=== PATIENT | female | born 1940 | race Caucasian/White ===

== ENCOUNTER 2020-04-05 07:10 | Inpatient (IN) | payer MEDICARE, OTHER ==
[2020-03-31 14:19] LABS: BASOPHILS # (AUTO) 0.1 (0.0-0.1); BASOPHILS % 0.3 % (0.0-1.0); EOSINOPHILS % 0.1 % (0.0-6.0); HEMOGLOBIN 13.6 g/dL (12.0-16.0); LYMPHOCYTES % 11.3 % (18.0-39.1); MEAN CORPUSCULAR HEMOGLOBIN 29.3 pg (28-32); MEAN CORPUSCULAR HGB CONC 31.6 g/dL (31-35); MEAN CORPUSCULAR VOLUME 92.7 fL (81-99); MONOCYTES # (AUTO) 1.4 (0.2-0.8); NEUTROPHILS # (AUTO) 13.9 (2.1-6.9); NEUTROPHILS % 79.3 % (38.7-80.0); PLATELET COUNT 243 x10e3/uL (140-360); RED BLOOD COUNT 4.64 x10e6/uL (3.6-5.1); RED CELL DISTRIBUTION WIDTH 15.2 % (11.7-14.4)
--- NOTE | 2020-03-31 14:47 | Diagnostic Imaging Report ---
EXAMINATION: CHEST 2 VIEWS INDICATION: Pre-operative COMPARISON: None FINDINGS: LINES/TUBES:None LUNGS:The lungs are well-inflated. No focal consolidation or pulmonary edema. PLEURA:No pleural effusion or pneumothorax. MEDIASTINUM:The cardiomediastinal silhouette appears normal in size and shape. Atherosclerotic calcifications of the thoracic aorta. BONES/SOFT TISSUES:No acute osseous injury. Partially visualized cervical spine fusion hardware. Surgical clips overlying both axillae. ABDOMEN:No free air under the diaphragm. IMPRESSION: No focal pneumonia or pulmonary edema. Signed by: Jj Barney MD on 03/31/2020 2:44 PM
[2020-03-31 14:58] LABS: ANION GAP 15.5 mmol/L (8-16); CALCIUM 9.3 mg/dL (8.4-10.2); CREATININE, SERUM 1.19 mg/dL (0.57-1.11); POTASSIUM 4.5 mmol/L (3.5-5.1)
[~2020-04-05] VITALS: Ht 162.6 cm; Wt 97.5 kg
[~2020-04-05 07:10] MED LIST: ATORVASTATIN CA20 MG PO; FLOMAX0.4 MG PO; FUROSEMIDE40 MG PO; OMEPRAZOLE40 MG PO; OXAZEPAM15 MG PO; RIVASTIGMINE1.5 MG TOP; SERTRALINE HCL50 MG PO; ZYRTEC10 MG PO
[2020-04-05] MEDS ORDERED: CLINDAMYCIN 300MG 50 ML IV ONE (07:47)
[2020-04-05] MEDS ORDERED: LEVOFLOXACIN 500MG/D5W 100ML 100 ML IV ONE (07:47)
[2020-04-05 08:02] LABS: BASOPHILS # (AUTO) 0.1 (0.0-0.1); BASOPHILS % 0.4 % (0.0-1.0); EOSINOPHILS # (AUTO) 0.2 (0.0-0.4); EOSINOPHILS % 1.3 % (0.0-6.0); HEMATOCRIT 40.2 % (34.2-44.1); HEMOGLOBIN 12.7 g/dL (12.0-16.0); LYMPHOCYTES # (AUTO) 1.9 (1.0-3.2); LYMPHOCYTES % 13.5 % (18.0-39.1); MEAN CORPUSCULAR HEMOGLOBIN 29.4 pg (28-32); MEAN CORPUSCULAR HGB CONC 31.6 g/dL (31-35); MEAN CORPUSCULAR VOLUME 93.1 fL (81-99); MONOCYTES % 6.9 % (4.4-11.3); PLATELET COUNT 219 x10e3/uL (140-360); RED BLOOD COUNT 4.32 x10e6/uL (3.6-5.1); RED CELL DISTRIBUTION WIDTH 15.1 % (11.7-14.4)
[2020-04-05 08:19] LABS: ANION GAP 13.7 mmol/L (8-16); CALCIUM 9.1 mg/dL (8.4-10.2); CREATININE, SERUM 1.19 mg/dL (0.57-1.11); POTASSIUM 4.7 mmol/L (3.5-5.1)
[2020-04-05] MEDS ORDERED: IOPAMIDOL 300MG/ML 50ML INFUS..BTL IV ONE (11:25)
[2020-04-05] MEDS ORDERED: BUPIVACAINE 0.25% 30ML SDV INJ ONE (11:25)
[2020-04-05] MEDS ORDERED: BACITRACIN 50,000 UNIT VIAL ONE (11:25)
[2020-04-05] MEDS ORDERED: INDIGOTINDISULFONATE SODIUM 8 MG/ML AMP IJ ONE ×2 (11:25→11:36)
[2020-04-05] MEDS ORDERED: SILVER SULFADIAZINE 50GM CREAM ONE (11:30)
[2020-04-05] MEDS ORDERED: LIDOCAINE 1% W/EPINEPHRINE 20 ML VIAL ONE (11:35)
[2020-04-05] MEDS ORDERED: DIPHENHYDRAMINE HCL 25 MG CAP PO PRN (13:30)
[2020-04-05] MEDS ORDERED: ONDANSETRON HCL INJ 2MG/ML 2ML 2 MG/ML VIAL IV PRN (13:30)
[2020-04-05] MEDS ORDERED: D5.45%NS/KCL 20MEQ 1,000 ML IV SCH (13:30)
[2020-04-05] MEDS ORDERED: MORPHINE SULFATE 2 MG/ML SYR 1ML IV PRN (13:30)
[2020-04-05] MEDS ORDERED: ACETAMINOPHEN/CODEINE 300MG - 30MG TAB PO PRN (13:30)
[2020-04-05] MEDS ORDERED: METOCLOPRAMIDE HCL 10 MG/2ML VIAL ONE (14:50)
--- NOTE | 2020-04-05 14:50 | Diagnostic Imaging Report ---
OR Fluoroscopy: IMPRESSION: Fluoroscopy service provided in the OR. Interpretation not requested. Signed by: Jeancarlos Velazquez MD on 04/05/2020 2:47 PM
[2020-04-05] MEDS ORDERED: MORPHINE SULFATE INJ 4 MG/ML INJ 1ML ONE (15:14)
[2020-04-05] MEDS ORDERED: DOCUSATE SODIUM 100 MG CAP PO SCH (17:00)
[2020-04-05] MEDS ORDERED: CEFOXITIN 1GM/ D5W 50ML 50 ML IV ONE (17:18)
[2020-04-05] MEDS ORDERED: ACETAMINOPHEN 1000 MG/100 ML IV PRN (18:00)
[2020-04-05] MEDS: CEFOXITIN 1GM/ D5W 50ML 50 ML IV SCH (18:20)
[2020-04-05] MEDS ORDERED: ONDANSETRON HCL INJ 2MG/ML 2ML 2 MG/ML VIAL ONE (18:37)
[2020-04-05] MEDS ORDERED: SEVOFLURANE INHAL SOLN 250 ML PEN BTL ONE (18:37)
[2020-04-05] MEDS ORDERED: DEXAMETHASONE SOD PHOS INJ 4 MG/ML VIAL ONE (18:37)
[2020-04-05] MEDS ORDERED: ETOMIDATE 2 MG/ML 10 ML INJ IV ONE (18:37)
[2020-04-05] MEDS ORDERED: MIDAZOLAM HCL 2 MG/2 ML VIAL ONE (18:41)
[2020-04-05] MEDS ORDERED: FENTANYL CITRATE/PF 100MCG/2 ML INJ ONE (18:41)
[2020-04-05] MEDS: CLINDAMYCIN 300MG 50 ML IV SCH (19:32)
[2020-04-05 20:10] VITALS: BP 108/63
[2020-04-05 21:04] VITALS: BP 108/63
[2020-04-05] MEDS: OXAZEPAM 15 MG CAP PO SCH (22:29)
[2020-04-06] VITALS (8 sets, daily range): BP systolic 102–121; BP diastolic 59–68
--- NOTE | 2020-04-06 01:46 | Operative Report ---
DATE OF PROCEDURE: 04/05/2020 SURGEON: Anmol Williamson MD PREOPERATIVE DIAGNOSES: 1. Cystocele. 2. Impending stress incontinence. 3. Urinary tract infections. POSTOPERATIVE DIAGNOSES: 1. Cystocele. 2. Impending stress incontinence. 3. Urinary tract infections. OPERATION PERFORMED: 1. Repair of cystocele. 2. Utilization of graft and cystocele repair. 3. Pubovaginal sling utilizing homograft (separate performed for the incontinence). 4. Cystourethroscopy with bilateral ureteral catheterization and retrograde ureteropyelography (separate procedure performed for the urine tract infections). 5. Interpretation of retrograde ureteropyelography, no radiologist present. 6. Supervision of fluoroscopy, no radiologist present. ANESTHESIA: General. COMPLICATIONS: None. CLINICAL SUMMARY: Luis Manuel Gtz is an 79-year-old woman with a cystocele and incontinence. She also has incomplete bladder emptying, which we believe may be resulting from the cystocele itself indicating deposits in the urethra. The patient is brought for the above procedures. She is aware of the risks of bleeding, infection, injury to adjacent structures, persistent incontinence, newer incontinence, different incontinence and the usual attendant risks of surgery and anesthesia, which she was encouraged to discuss with anesthesiologist preoperatively. She understood all these risks and elected to proceed. This is not an elective procedure as this is an anatomical problem. The patient does not empty her bladder fully and requires correction despite of the COVID-19 situation. OPERATIVE PROCEDURE IN DETAIL: Informed consent was verified. Luis Manuel Gtz was properly identified, taken to the operating room, placed on the operating table in supine position. Anesthesia was uneventfully begun. The patient was then carefully and gently repositioned in the dorsal lithotomy position with all pressure points well padded. Her abdomen, genitalia, and perineum were shaved, prepared, and draped in usual sterile fashion. Labial stay sutures were placed. The vaginal speculum was utilized. Lidocaine with epinephrine was utilized to infiltrate submucosally along the anterior vaginal wall. A midline incision was then made. Bilateral vaginal wall flaps were created. We pierced the endopelvic fascia as laterally as possible bilaterally, thus avoiding injury to the neurovascular periurethral complexes. Once the dissection was completed, we utilized the heavy Vicryl suture in interrupted [id number] fashion to approximate the cut edges of the endopelvic fascia and thus doing a plicating type of cystocele repair. This was done from the bladder neck to the cephalad most extent of the vaginal incision. The Bernardo catheter was then placed. The graft was cut to shape. A heavy PDS suture was then placed through the ends of the graft in a helical fashion. We then utilized the Odeeo needle system. With finger guidance we hugged the posterior surface of the pubis on the left hand side and pierced through the anterior abdominal wall, then dragged with the PDS suture pair. An identical procedure was performed on the right-hand side. We then utilized chromic suture to secure the graft to support the cystocele repair. We then brought the graft distally in order to create a pubovaginal sling and this was secured to the distal urethra utilizing chromic suture. The lateral suture passer was then utilized to take one strand of each PDS suture and tunneled it subcutaneously suprapubically to join its contralateral counterpart. The sutures were then tied down to the level of the patient's skin and then the knots were allowed to fall deep within the suprapubic fat pad thus ensuring a non-lifting, non-constricting, and nonobstructing sling. Copious irrigation was performed of all incisions. Lidocaine with epinephrine was utilized to infiltrate the stab wounds in the suprapubic area. These wounds were approximated with 4-0 Monocryl suture in subcuticular fashion. The vaginal incision was then approximated with heavy Vicryl suture in running fashion. A Bernardo catheter was withdrawn. Cystoscopy was performed. Panendoscopy of the bladder revealed no suspicious mucosal lesions. There were no tumors and there were no stones. Grade 1-2 trabeculations were noted. A ureteral catheter was used to cannulate each ureter and retrograde pyelograms were performed. Interpretation of retrograde ureteropyelography contrast was instilled in retrograde fashion bilaterally. There was a rather dramatic amount of back hardware noted from prior back surgery. There was some tortuosity of the proximal right ureter. There was J-hooking noted bilaterally following the cystocele repair. Both sides exhibited calices that were sharp and delicate. There was no hydronephrosis. An unobstructed drainage was observed bilaterally fluoroscopically. The cystoscope was withdrawn. Bernardo catheter was placed. Vaginal packing was placed. Labial stay sutures were removed. Sterile dressings were applied to the suprapubic area. The patient was uneventfully reversed from anesthesia and taken to recovery room in stable condition. There were no complications to the procedure. She tolerated the procedure well. Explicit postop instructions were given and we will proceed with routine postoperative care and ongoing urological followup. Anmol Williamson MD [place]/MODL /[id number] cc: Pauline Villaseñor MD
[2020-04-06] MEDS: CEFOXITIN 1GM/ D5W 50ML 50 ML IV SCH ×3 (01:51→16:57)
[2020-04-06] MEDS: CLINDAMYCIN 300MG 50 ML IV SCH ×3 (04:00→20:01)
[2020-04-06 06:18] LABS: BASOPHILS % 0.2 % (0.0-1.0); EOSINOPHILS % 0.1 % (0.0-6.0); HEMATOCRIT 36.8 % (34.2-44.1); HEMOGLOBIN 11.5 g/dL (12.0-16.0); LYMPHOCYTES # (AUTO) 1.5 (1.0-3.2); LYMPHOCYTES % 8.4 % (18.0-39.1); MEAN CORPUSCULAR HEMOGLOBIN 29.3 pg (28-32); MEAN CORPUSCULAR HGB CONC 31.3 g/dL (31-35); MEAN CORPUSCULAR VOLUME 93.6 fL (81-99); MONOCYTES # (AUTO) 1.2 (0.2-0.8); MONOCYTES % 6.7 % (4.4-11.3); NEUTROPHILS % 83.9 % (38.7-80.0); PLATELET COUNT 172 x10e3/uL (140-360); RED BLOOD COUNT 3.93 x10e6/uL (3.6-5.1); RED CELL DISTRIBUTION WIDTH 14.9 % (11.7-14.4)
--- NOTE | 2020-04-06 06:41 | NUR ---
H&P cc: cystocele HPI: 79yoF, PCP , admitted for elective cystocele repair; had procedure, now recovering. Pt has hx urinary incontinence. PMH: cystocele, HLD, GERD, IRAJ, urinary incontinence, dementia, breast cancer s/p chemoXRT and B/L mastectommies in , Recurrent UTIs, PSHx: appendectomy, tonsillectomy, neck/back, mastectomies, cholecystectomy Allergies; see emr Fh/SH; ; no cigs meds; see MAR ros: no f/c/s/N/V/D/WALLIS/cp/sob/skin rash/back pain/dizziness/confusion v/s; revd PE tired appearing anicteric ns1s2 mod bs soft nt nd Bernardo in place, clear urine no edema/tenderness legs skin dry n. affect a&ox3; arias labs/meds A/P; Cystocele- s/p repair Obesity- hba1c/lipids Leukocytosis- iv abx; BMI 36.9 IRAJ- BZD GERD- ppi HLD- cont statin MIGDALIA vs CKD- IVF Prop: scd; pepcid dispo: Lorri Moralez MD, PhD.
[2020-04-06 06:43] LABS: ANION GAP 11.9 mmol/L (8-16); CREATININE, SERUM 0.97 mg/dL (0.57-1.11); POTASSIUM 4.9 mmol/L (3.5-5.1)
[2020-04-06] MEDS ORDERED: ACETAMINOPHEN 325 MG TAB PO PRN (06:45)
[2020-04-06] MEDS ORDERED: DOCUSATE SODIUM 100 MG CAP PO PRN (06:45)
[2020-04-06] MEDS ORDERED: ONDANSETRON HCL INJ 2MG/ML 2ML 2 MG/ML VIAL IV PRN (06:45)
[2020-04-06 07:17] LABS: CHOL/HDL RATIO 3.7 (3.0-3.6)
[2020-04-06] MEDS: PANTOPRAZOLE SOD 40 MG TABEC PO SCH (08:35)
[2020-04-06] MEDS: DEXTROSE 5%/0.45% SOD CHL 1,000 ML IV SCH ×2 (08:37→16:53)
[2020-04-06] MEDS: SERTRALINE HCL 50 MG TAB PO SCH (08:43)
--- OUTSIDE RECORDS SUMMARY | 2020-04-06 08:50 | XMS REPORT | Clinical Summary ---
Author Author [facility] Address Unknown Phone Unavailable Care Team Providers Care General Manager Farm Name Role Phone Pauline Villaseñor MD PCP Allergies Comments Active Allergy Reactions Severity Noted Date Amoxicillin Rash Low 04/06/2018 Medications End Date Status Medication Sig Dispensed Refills Start Date Active atorvastatin (LIPITOR) 20 0 03/02/201 MG tablet 8 Active aspirin (ECOTRIN) 81 MG Take 1 tablet 0 enteric coated tablet every day by oral route. Active omeprazole (PriLOSEC) 40 omeprazole 40 0 MG capsule mg cpdr Active rivastigmine (EXELON) 9.5 0 //201 mg/24 hr 8 Active multivit-minerals/ferrous Take by 0 fum (MULTI VITAMIN ORAL) mouth. Status Hospital, Clinic, or Ordered Dose Route Frequency Start End Date Other Facility Date Administered Medication Active methylPREDNISolone 40 mg IAtc once 0 acetate (DEPO-MEDROL) 18 injection 40 mgIndications: Osteoarthritis of right knee, unspecified osteoarthritis type Active bupivacaine (MARCAINE) 5 mg inj once 0.5 % (5 mg/mL) injection 18 5 mgIndications: Osteoarthritis of right knee, unspecified osteoarthritis type Active Problems Problem Noted Date Cervical post-laminectomy syndrome 09/09/2018 Displacement of lumbar intervertebral disc without my elopathy 09/09/2018 Lumbar post-laminectomy syndrome 09/09/2018 Lumbosacral radiculitis 09/09/2018 Scoliosis of lumbar spine 09/09/2018 Spondylolisthesis 09/09/2018 Complex tear of medial meniscus of right knee 2017 Osteoarthritis 07/06/2018 Chronic pain of right knee 04/06/2018 Lymphedema 04/06/2018 Muscle spasm 06/22/2014 Urinary retention 06/22/2014 Family History Medical History Relation Name Comments Heart disease Father Diabetes Sister Relation Name Status Comments Father Sister Social History Date Tobacco Use Types Packs/Day Years Used Never Smoker Smokeless Tobacco: Never Used Drinks/Week oz/Week Comments Alcohol Use No Sex Assigned at Date Recorded Not on file Industry Job Start Date Occupation Not on file Not on file Not on file Travel End Travel History Travel Start No recent travel history available. Last Filed Vital Signs Not on file Plan of Treatment Health Maintenance Due Date Last Done Comments SHINGLES VACCINES (#1) 1988 65+ PNEUMOCOCCAL VACCINE 2003 (1 of 2 - PCV13) INFLUENZA VACCINE 06/17/2020 Results Not on fileafter 04/05/2019 Insurance Type Payer Benefit Subscriber ID Effective Phone Address Plan / Dates Group HMO CIG[employer] CIGNA xxxxxxxxxxx 2017-P [facility] [facility] AD[facility] [id number] Advance Directives For more information, please contact: [phone] Patient Box Packer Explanation Type Date Recorded Advance Directives, Living Will and Medical Power of Corporate Bond Trader
--- OUTSIDE RECORDS SUMMARY | 2020-04-06 08:50 | XMS REPORT | Summary of Care ---
Author Author [facility] Outpatient Imaging - [facility] Outpatient Imaging - [facility] Address Unknown Phone Unavailable Encounter HQ Mariner_skye(FIN) [id number] Date(s): 10/18/16 - 10/18/16 [facility] Outpatient Imaging - [place] [facility] [address] [address]- [place] [phone] Discharge Disposition: Home or Self Care Attending Physician: Pauline Villaseñor MD Vital Signs No data available for this section Problem List No data available for this section Allergies, Adverse Reactions, Alerts Substance Reaction Severity Status NKDA Active Medications No data available for this section Results No data available for this section Immunizations No data available for this section Procedures No data available for this section Social History No data available for this section Assessment and Plan No data available for this section
--- OUTSIDE RECORDS SUMMARY | 2020-04-06 08:50 | XMS REPORT | Continuity of Care Document ---
Author Author Aline Gomez RIGO [facility] Address Unknown Phone Unavailable Care Team Providers Care Cytopathologist Name Role Phone [facility] Information NeedFeed Unavailable Un available Problems Problem Status Onset Date Classification Date Reported Comments Source D05.90 - UNSPECIFIED TYPE OF CARCINOMA Active 10/18/2016 [facility] M51.27 - OTHER INTERVERTEBRAL DISC DISP Active 09/03/2016 [facility] Medications No Data Provided for This Section Allergies, Adverse Reactions, Alerts No Known Medication Allergies Immunizations No Data Provided for This Section Results No Data Provided for This Section Pathology Reports No Data Provided for This Section Diagnostic Reports Report Value Date Source Breast Complete Parvez US - BREAS T COMPLETE PARVEZ US ULTRASOUND OF BOTH BREASTS- POST MASTECTOMY: 10/21/2016 CLINICAL: Z85.3 Personal History Of Malignant Neoplasm Of Breast. Comparison is made to exams dated: 08/09/2014 ultrasound, 08/09/2014 mammogram, 08/09/2014 ultrasound biopsy, 07/28/2014 breast MRI, 07/27/2014 mammogram and 11/16/2013 ultrasound - [facility]. Real-time ultrasound of both breasts was performed. The entire right and left mastectomy sites were evaluated including all four quadrants, axilla, and axillary tail. There are no abnormal-appearing lymph nodes in both axilla. There is no complex cyst, suspicious mass, or abnormal echotexture. IMPRESSION: BENIGN There is no sonographic evidence of malignancy. Ever Aguilar M.D. mt/:10/21/2016 11:33:56 Mirror Painter: Jael Junior R.D.M.S, [facility] This exam was dictated and interpreted by [id number] for [facility]. letter sent: Normal exam Ultrasound BI-RADS: 2 Benign 10/21/2016 [facility] Bone Density DXA [employer] MA - Bone Density [employer] MA BONE DENSITY EVALUATION: 10/18/2016 CLINICAL DATA: Post menopausal. Taking multivitamins and vitamin D. RISK FACTORS: race. Patient had surgery on her lower lumbar spine. FINDINGS: Bone density evaluation was performed 10/18/2016 on the AP L1-L3 region of spine using a Hologic unit. The BMD average for the exam is 1.229 g/cm2. The T-score is 1.90 and the Z-score is 4.40. These values indicate 166.0% for age-matched controls. This matches the World Health Organization's criteria for normal bone density and places the patient within normal limits of fracture risk. An additional bone density evaluation was performed 10/18/2016 on the right femur neck using a Hologic unit. The BMD average for the exam is 0.800 g/cm2. The T-score is -0.40 and the Z-score is 1.80. These values indicate 133.0% for age-matched controls. This matches the World Health Organization's criteria for normal bone density and places the patient within normal limits of fracture risk. An additional bone density evaluation was performed 10/18/2016 on the right hip using a Hologic unit. The BMD average for the exam is 1.107 g/cm2. The T-score is 1.40 and the Z-score is 3.30. These values indicate 158.0% for age-matched controls. This matches the World Health Organization's criteria for normal bone density and places the patient within normal limits of fracture risk. An additional bone density evaluation was performed 10/18/2016 on the left femur neck using a Hologic unit. The BMD average for the exam is 0.904 g/cm2. The T- score is 0.50 and the Z-score is 2.70. These values indicate 150.0% for age- matched controls. This matches the World Health Organization's criteria for normal bone density and places the patient within normal limits of fracture risk. An additional bone density evaluation was performed 10/18/2016 on the left hip using a Hologic unit. The BMD average for the exam is 1.150 g/cm2. The T-score is 1.70 and the Z-score is 3.70. These values indicate 164.0% for age-matched controls. This matches the World Health Organization's criteria for normal bone density and places the patient within normal limits of fracture risk. IMPRESSION: BONE DENSITY WITHIN NORMAL LIMITS Patient is at normal risk for fracture. Compared to BMD of prior exam, there has been a DECREASE in bone density in the spine and bilateral hips. This exam was dictated and interpreted by [facility], [place] [address]. Thi Lozano M.D. sg/:10/21/2016 17:05:51 Mirror Painter: Aurora Clemons, [facility] [place] [facility] 10/18/2016 [facility] Spine lumbar wo contrast MRI E XAM: MRI lumbar spine HISTORY: Low back pain, lumbar radiculopathy COMPARISON: MRI lumbar spine 11/09/2013 TECHNIQUE: Axial and sagittal T1 and T2-weighted images of the lumbar spine. No contrast. FINDINGS: Levoscoliosis. Rods and pedicle screws and laminectomies L4-5 and L5-S1 and intervertebral graft at L5-S1 appear stable. Stable laminectomy L3. T12-L1: Disc bulge, mild-moderate facet and ligamentum flavum hypertrophy bilaterally with mild-moderate central canal stenosis. Moderate-marked right neuroforaminal stenosis and moderate left neuroforaminal stenosis. The disc abuts the right T12 foraminal nerve root. L1-2: Small disc bulge right lateral recess, mild-moderate facet arthrosis and ligamentum flavum hypertrophy bilaterally with moderate-marked canal stenosis. Marked neuroforaminal stenosis on the left and moderate foraminal stenosis on the right. L2-3: Mild anterolisthesis of L3 with small disc bulge, marked facet arthrosis, left greater than right, with moderate-marked canal stenosis. Marked neuroforaminal stenoses bilaterally with compression of the left L2 foraminal nerve root. L3-4: Grade 1 anterolisthesis of L3 is not significantly changed with associated pseudodisc bulge, marked facet arthrosis and marked central canal stenosis. Marked neuroforaminal stenoses bilaterally with impingement of the right and left L3 foraminal nerve roots. L4-5: No disc bulge. Moderate canal stenosis. Marked neuroforaminal stenosis on the right and moderate-marked foraminal stenosis on the left with disc osteophyte complex impinging the left L4 foraminal nerve root. L5-S1: Significant disc bulge or central canal stenosis. Moderate-marked neuroforaminal stenoses bilaterally with impingement of the right and left L5 foraminal nerve roots. 3.4 cm AP infrarenal aortic aneurysm is stable. 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 Heterogeneous T2 lesion adjacent to the right iliac bone may reflect postoperative collection related to graft donor site. IMPRESSION: 1. Stable postoperative changes of the l umbosacral spine. Scoliosis and anterolisthesis L3. Diffuse degenerative change with disc bulges and posterior element hypertrophy with moderate-marked canal and neuroforaminal stenoses most pronounced at L3-4. Multilevel nerve root impingement. 2. Stable aneurysms of the infrarenal ao rta and common iliac arteries. SL: [id number] 09/11/2016 [facility] Abdomen complete US EXAM: Ultr asound abdomen HISTORY: Abdominal aortic aneurysm, back pain COMPARISON: Ultrasound aorta 10/14/2012 TECHNIQUE: Grayscale and limited color sonographic evaluation of the abdomen was performed with standard technique. FINDINGS: LIVER: Fatty change. BILE DUCTS: Visualized common duct measures 3 mm diameter. GALLBLADDER: Cholelithiasis. PANCREAS: The visualized pancreas appears unremarkable.. SPLEEN: Unremarkable. KIDNEYS: No hydronephrosis.. AORTA AND INFERIOR VENA CAVA: The distal aorta measures 3 cm AP x 3.6 cm transverse. IMPRESSION: 1. Infrarenal aortic aneurysm measuring 3 x 3.6 cm. 2. Cholelithiasis. 3. Fatty liver. SL: [id number] [facility] [place] [facility] Notes No Data Provided for This Section Discharge Summaries No Data Provided for This Section History and Physicals No Data Provided for This Section Vital Signs No Data Provided for This Section Encounters Location Location Details Encounter Type Encounter Number Reason For Visit Attending Provider ADM Date DC Date Status Source [facility] Outpatient Imaging [place] [facility] [id number] 07 Pauline Kasi 09/11/2016 09/12/2016 [facility] - [place] [facility] [id number] 08 Pauline Kasi 10/18/2016 10/19/2016 [facility] [place] [facility] Outpatient Imaging - [place] [facility] [id number] Pauline Kasi 10/21/2016 10/22/2016 [facility] [place] [facility] Procedures No Data Provided for This Section Assessment and Plan No Data Provided for This Section Plan of Care No Data Provided for This Section Social History Social History Date Source No data available for this section 10/22/2016 [facility] [place] [facility] No data available for this section 09/12/2016 [facility] [place] Family History No Data Provided for This Section Advance Directives No Data Provided for This Section Functional Status No Data Provided for This Section
--- OUTSIDE RECORDS SUMMARY | 2020-04-06 08:50 | XMS REPORT | Summary of Care ---
Author Author [facility] Outpatient Imaging [facility] Outpatient Imaging [facility] Address Unknown Phone Unavailable Encounter HQ Encntr_alias(FIN) [id number] Date(s): 09/11/16 - 09/11/16 [facility] Outpatient Imaging [address] [phone] Discharge Disposition: Home or Self Care Attending [...]
--- OUTSIDE RECORDS SUMMARY | 2020-04-06 08:50 | XMS REPORT | Summary of Care ---
Author Author [facility] Outpatient Imaging - [facility] Outpatient Imaging - [facility] Address Unknown Phone Unavailable Encounter HQ Lisantr_skye(FIN) [id number] Date(s): 10/21/16 - 10/21/16 [facility] Outpatient Imaging - [place] [facility] [id number] [place] [address] [phone] Discharge Disposition: Home or Self Care Attending [...]
--- OUTSIDE RECORDS SUMMARY | 2020-04-06 08:51 | XMS REPORT | Encounter Summary ---
Author Organization Unknown Address [address] [place] [address] Phone [phone] Care Team Providers Care Well Drill Operator Name Role Phone Dr. Pauline Villaseñor 3 [phone] Jeni Amhadi MD 82 [phone] Dennys Valdez MD 105 [phone] Roseann Martin 110 [phone] Reason for Visit hospital follow up - TCM (VFP); Left low back pain; flu vaccine; Left ear pain/problem; Left shoulder pain; cough Instructions 1. Cervical spondylosis without myelopat hy neurosurgery referral 2. Solitary sacroiliitis sciatica: exercises physical therapy referral 3. Fall 4. Urinary incontinence urology referral 5. Lymphedema Lasix 40 mg tablet lymphedema consult 6. Actinic keratosis dermatology referral 7. Vitamin D deficiency Vitamin D3 400 unit tablet 8. Influenza vaccination Fluad 2019- 65yr up(PF)45 mcg(15 mcg x3)/0.5 mL intramuscular syringe 9. Immunization Pneumovax 23 25 mcg/0.5 mL injection s olution 10. Body mass index 30+ - obesity body mass index: care instructions learning about healthy weight 11. Abdominal aortic aneurysm without ru pture 12. Chronic kidney disease stage 3 13. Polyneuropathy Discussion Note: None recorded. Plan of Care Patient Instructions Thank you for scheduling your post hospi amy visit. Please let us know if you need help in scheduling follow up tests or specialist visits. Knowing what medicines to keep taking and which to ones to stop after a hospital stay can be confusing. Contact your physicians with your questions about what medications you should be taking. Our [facility] can also help you in this area. Contact them at . [facility] can help you choose the best Home Health agency. We can also help you with social psychologist and community resources. Call us we are here to help. If you experience any new or concerning symptoms, call us immediately at . Evening and Friday clinic hours are now available. If you have problems after hours, you can reach the [facility] doctor supervisor metal furniture fabrication at . Please follow up with your doctor in four weeks. Reminders Provider Appointments Est Patient 09/28/2019 10:00AM Pauline Villaseñor MD Lab None recorded. Referral Urology Referral 08/31/2019 Lymphedema Consult 08/31/2019 Neurosurgery Referral 08/31/2019 Physical Therapy Referral 08/31/2019 Dermatology Referral 08/31/2019 Procedures None recorded. Surgeries None recorded. Imaging None recorded. Medications Name Start Date atorvastatin 20 mg tablet TAKE ONE TABLET BY MOUTH ONE TIME DAILY Colace 100 mg capsule Take 1 capsule every day by oral route as needed. furosemide 40 mg tabs 1 tablet orally once a day Lasix 40 mg tablet Take 1 tablet every day by oral route. Miralax prn omeprazole dr 40 mg cpdr 1 capsule orally once a day oxazepam 15 mg capsule Take 1 capsule 3 times a day by oral route as needed. PreserVision AREDS 1 capsule orally once a day rivastigmine 9.5 mg/24 hour transdermal patch APPLY ONE PATCH EXTERNALLY ONE TIME DAILY sertraline 50 mg tablet Take 1 tablet every day by oral route. 04/14/2019 triamterene/hydrochlorothiazide 37.5-25 mg tabs 1 tablet orally once a day Vitamin D3 400 unit tablet Take 1 tablet twice a day by oral route. Medications Administered None recorded. Vitals Height Weight BMI Blood Pressure 5 ft 3 in 219 lbs 38.8 kg/m2 105/76 mm[Hg] Results Lab Results None recorded. 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 12/06/2016 Gastro-esophageal Reflux Disease with Esophagitis Active 12/06/2016 Constipation Active 12/13/2016 Slow Transit Constipation Active 02/14/2017 Nuclear Cataract Active 02/24/2017 Mixed Hyperlipidemia Active 02/27/2017 Morbid Obesity Active 12/08/2017 Polyneuropathy Active 12/08/2017 Peripheral Venous Insufficiency Active 12/08/2017 Solitary Sacroiliitis Active 12/08/2017 Body Mass Index 40+ - Severely Obese Active 12/08/2017 Generalized Anxiety Disorder Active 05/07/2018 Lymphedema Active 05/07/2018 Bilateral Tinnitus Active 09/04/2018 Chronic Kidney Disease Stage 3 Active 01/18/2019 History of Bilateral Mastectomy Active 01/18/2019 Postmenopausal Bleeding Active 02/26/2019 Moderate Major Depression, Single Episode Active 2018 Vitamin D Deficiency Active 08/31/2019 Procedures Date Name Performed by 08/18/2019 Cardiac Catheterization Information not available 08/08/2015 Colonoscopy Information not avai lable 11/17/2013 Lumpectomy Information not avai lable 11/17/2012 Laminectomy Information not avai lable 11/17/2011 Back Surgery Information not avai lable 11/17/2010 Breast Surgery Information not avai lable 11/17/2010 Mastectomy (Both Breasts) Information no t available 11/17/1942 Appendectomy Information not avai lable 11/17/1942 ENT Surgery (Ear, Nose, Throat) Informat ion not available Tonsillectomy Information not avai lable Hernia Repair Information not avai lable Vaccine List Vaccine Type influenza, injectable, quadrivalent 09/08/2018 pneumococcal conjugate PCV 13 02/24/2017 tetanus toxoid, unspecified formulation 06/21/1999 Social History Tobacco Smoking Status Never Smoker Past Encounters 08/31/2019 Cervical Spondylosis without Myelopathy; Solitary Sacroiliitis; Fall; Urinary Incontinence; Lymphedema; Actinic Keratosis; Vitamin D Deficiency; Influenza Vaccination; Immunization; Body Mass Index 30+ - Obesity; Abdominal Aortic Aneurysm without Rupture; Chronic Kidney Disease Stage 3; Polyneuropathy Pauline Villaseñor MD: [address] [place] [phone], Ph. History of Present Illness Shoulder pain Reported By: Patient HPI: Location: left. Quality: occ asional. Severity: mild. Duration: 2 weeks. Timing: acute. Context: cannot identify. Alleviating Factors: position change. Aggravating Factors: ROM. Associated Symptoms: no weakness, no numbness, no tingling, no swelling. Previous Surgery: none. Prior Imaging: x ray. Previous Injections: none. Previous PT: none Fall Reported By: Patient HPI: Location of Injury: face, kn ee bilateral. Severity of Pain: mild. Onset/Timin days ago. Context: fell from standing position, tripped; over parking stop. Associated Symptoms: no loss of consciousness, no facial numbness/weakness, no loss of coordination since injury, poor balance. Alleviating Factors: relieved by ice Notes: skinned her nose and her kne es TCM Provider Visit Reported By: Patient HPI: Timing: ; 08/18-08/20 for left shoulder pain , had heart cath and left side neg, stress t4st and echo were normal. Discharge Information: Discharged from: [facility], Discharged to: Home, Hospital Records (H&P, DC Summary, Transition of Care Document) reviewed and scanned? No - records requested, Current Caregivers:self and others. Functional Status No difficulty following discharge instructions, Taking medications as prescribed, Following recommended activity level, Does patient need help getting medications filled? no, Is the patient dependent upon others to leave the home? yes, Durable medical equipment required? no Acute Low Back Pain Reported By: Patient HPI: Location: pain is not radiat ing. Quality: sharp. Severity: same. Onset/Timin-12 months ago. Context: atraumatic. Alleviating Factors: rest, relieved by lying down. Associated Symptoms: no fever. Previous History: no prior injury to back. Prior Imaging: X-ray URI Reported By: Patient Upper Respiratory Symptoms: Onset/Timing: gradual. Loc ation: ; ear. Quality: dry cough. Severity: no pain. Context: no sick contacts Notes: her son thinks the ear pain , cough and left shoulder pain may be coming from her neck plate Review of Systems:ROS as noted in the HPI Review of Systems Comprehensive General Adult ROS Reported By: Patient Physical Exam General Adult Exam (male), L ow Back Pain Reported By: Patient Constitutional: General Appearance: healthy- appearing, well-developed, overweight. Level of Distress: NAD. Ambulation: limited ambulation Psychiatric: Mental Status: normal mood, normal affect. Orientation: to place, to person. Memory: recent memory abnormal Head: Head: normocephalic, atrauma tic ENMT: Ears: EACs clear, TMs clear. Nose: no sinus tenderness Neck: Neck: ; decreased ROM, not t jayden. Lymph Nodes: no cervical LAD. Thyroid: no enlargement Lungs: Auscultation: breath sounds normal, good air movement, no wheezing, no rales/crackles, no rhonchi Cardiovascular: Heart Auscultation: RRR, no murmurs Abdomen: Inspection and Palpation: so ft, non-distended, no tenderness, no guarding, no rebound tenderness, no masses, no CVA tenderness Musculoskeletal:: Motor Strength and Tone: nor mal. Joints, Bones, and Muscles: normal movement of all extremities. Extremities: no edema Neurologic: Gait and Station: normal gai t, normal station. Cranial Nerves: grossly intact Skin: Inspection and palpation: ; right congregational crusted irregular lesion Lumbar Spine: Inspection: normal alignment . Bony Palpation of the Lumbar Spine: no tenderness of the spinous process. Soft Tissue Palpation on the Right: no tenderness of the supraspinous ligament, no tenderness of the paraspinal region. Soft Tissue Palpation on the Left: tenderness of the iliolumbar region. Active Range of Motion: flexion normal, extension normal. Passive Range of Motion: flexion normal, extension normal
--- OUTSIDE RECORDS SUMMARY | 2020-04-06 08:51 | XMS REPORT | Encounter Summary ---
Author Organization Unknown Address [address] [place] [address] Phone [phone] Care Team Providers Care Regulatory Auditor Name Role Phone Dr. Pauline Villaseñor 3 [phone] Jeni Ahmadi MD 82 [phone] Dennys Valdez MD 105 [phone] Roseann Martin 110 [phone] Reason for Visit Left ear pain/problem; annual depression screening; TELE-AWV Annual Wellness Visit Female; advance care plan; annual alcohol misuse screening; Bilateral eye problem/disorder; Tobacco Cessation Counseling Instructions 1. Acute conjunctivitis mwaodnmb-iazsrstiq-gqqglvib 3.5 mg/mL- 10,000 unit/mL-0.1% eye drops 2. Advance directive discussed with ann ent advance care planning: care instructio ns 3. Depression screening learning about depression 4. Depression screening positive learning about depression learning about mood disorders 5. Alcohol consumption screening learning about alcohol use disorder 6. Generalized anxiety disorder oxazepam 15 mg capsule 7. Mixed hyperlipidemia atorvastatin 20 mg tablet 8. Abdominal aortic aneurysm without rup ture 9. Chronic kidney disease stage 3 10. Moderate major depression, single ep isode sertraline 50 mg tablet 11. Polyneuropathy 12. Lymphedema 13. Cystocele Discussion Note: None recorded. Plan of Care Patient Instructions It was good to speak with you virtually today for your Medicare Annual Wellness Visit. You have been provided some information on healthy nutrition, including a diet rich in fruits and vegetables, minimizing simple carbohydrates, salt, and saturated fats. I want to encourage regular cardiovascular exercise such as walking at least 30 minutes daily, 5 times per week. Please remember to schedule any preventive health measures that we talked about today. You have also been provided education on fall prevention and community- based lifestyle interventions to help reduce health risks and promote healthy living in your Annual Wellness folder. Screening Recommendations 1. Vaccines Pneumonia: Influenza: 2. Mammography Screenin. Colorectal Cancer Screenin. Annual Depression Screening 5. Annual Alcohol Screening 6. Annual Fall Risk Screening 7. Annual Health Risk Assessment Quitting Tobacco Goals Quitting smoking is important for your health, but it is hard to do. We agreed to the following goals towards reducing your tobacco habits: Today we talked about how you are . Since you want to smoke less, but are not ready to quit yet, we agreed that by your next appointment, you would . Since your ready to quit smoking, we agreed that you would smoke your last cigarette on . Keymodule Assembly Machine Tender Goals: *Permanently quit smoking *Improve lung function *Reduce my risk of getting emphysema, cancer and heart disease What can increase my chances of success for quitting smoking? *Regular exercise *Chew gum or hard candy *Identify triggers that lead to smoking, and establish new strategies for coping with these situations *Keep yourself busy *Contact additional resources for support, such as [employer] *Don't give up, even if you have a setback How can my healthcare team support me in quitting smoking? *Follow up visits to assess progress *Identify resources available to help you quit smoking *Consider medication to increase your chances of successfully quitting smoking *Referral to counseling for additional support Patient Instructions on Filing Advance Directives Be sure that you have easy access to your paperwork for your Medical Power of Forensic Pathologist and Advanced Directives. Be sure that the designated person as well as important family members have copies of those forms as well. Please have contact information of your designee readily available. In the event of hospitalization, please bring those important documents with you for reference. Please find additional information at [email or web address] Reminders Provider Appointments None recorded. Lab None recorded. Referral None recorded. Procedures None recorded. Surgeries None recorded. Imaging None recorded. Medications Name Start Date atorvastatin 20 mg tablet TAKE ONE TABLET BY MOUTH ONE TIME DAILY Colace 100 mg capsule Take 1 capsule every day by oral route as needed. furosemide 40 mg tablet Take 1 tablet every day by oral route. Miralax prn wlkmbedk-rrhwfqwep-upngyzno 3.5 mg/mL-10 ,000 unit/mL-0.1% eye drops INSTILL 1 DROP INTO AFFECTED EYE(S) BY OPHTHALMIC ROUTE 4 x a day omeprazole dr 40 mg cpdr 1 capsule orally once a day oxazepam 15 mg capsule take one capsule by mouth three times daily prn PreserVision AREDS 1 capsule orally once a day rivastigmine 9.5 mg/24 hour transdermal patch APPLY ONE PATCH EXTERNALLY ONE TIME DAILY sertraline 50 mg tablet Take 1 tablet every day by oral route. tamsulosin 0.4 mg capsule Take 1 capsule every day by oral route for 90 days. Vitamin D3 10 mcg (400 unit) tablet Take 1 tablet twice a day by oral route. Medications Administered None recorded. Vitals Height 5 ft 3 in Results Lab Results None recorded. Allergies Code [...] Active 2018 Vitamin D Deficiency Active 08/31/2019 Urinary Incontinence Active 03/01/2020 Procedures Date Name Performed by 08/18/2019 Cardiac [...] List Vaccine Type influenza, injectable, quadrivalent 09/08/2018 influenza, trivalent, adjuvanted 08/31/20190.5 mL pneumococcal conjugate PCV 13 02/24/2017 pneumococcal polysaccharide PPV23 08/31/20190.5 mL tetanus toxoid, unspecified formulation 06/21/1999 Social History Tobacco Smoking Status Never Smoker Past Encounters 03/14/2020 Acute Conjunctivitis; Advance Directive Discussed with Patient; Depression Screening; Depression Screening Positive; Alcohol Consumption Screening; Generalized Anxiety Disorder; Mixed Hyperlipidemia; Abdominal Aortic Aneurysm without Rupture; Chronic Kidney Disease Stage 3; Moderate Major Depression, Single Episode; Polyneuropathy; Lymphedema; Cystocele Pauline Villaseñor MD: [address] [place] [phone], Ph. History of Present Illness Mini Cog Reported By: Patient Functional Ability: Personal/Social/ Draw a cloc k and write in the numbers in the correct place, and set the time to 10 minutes after 11 o'clock was completed correctly? Yes, 3 word recall: Your nurse or doctor will ask you to remember 3 words. In 5 minutes, they will ask you to repeat them. Patient recalled 2 words Opioid Use Assessment Reported By: Patient Opioid Use Assessment:: Current Use of Opioids : no use of opioids (no further questions required) Note:I'd like to talk about what is ahead with your illness and do some thinking in advance about what is important to you so I can make sure we provide you with the care you want-is that okay? {{Yes*|No}}
Do you have a Living Will/Advanced Directive? {{yes*|no}}

Do you have a Medical Power of Forensic Pathologist? {{yes*|no}}

How much does your family/caregiver know about your illness/conditions? {{not at all|to a small extent|to some extent|to a moderate extent|to a great extent*}}

Have you had a conversation with your family/caregiver about planning for your future health? {{yes*|no}}
Review of Systems Comprehensive General Adult ROS Reported By: Patient Constitutional: Constitutional: no fever Eyes: Eyes: no vision change, irri tation; bumps and crusting since this am ENMT: Ears: ear pain; left ear temitope n since at least Oct,family has noticed that she does clinch her teeth often. Nose: no sinus problems. Mouth/Throat: sore throat Cardiovascular: Cardiovascular: no chest temitope n, no shortness of breath when walking, no palpitations Respiratory: Respiratory: no cough, no wh eezing, no shortness of breath Gastrointestinal: Gastrointestinal: no abdomin al pain, no nausea, no vomiting, no constipation, no diarrhea, no GERD Genitourinary: Genitourinary: no increased frequency Musculoskeletal: Musculoskeletal: no muscle a ches, muscle weakness, arthralgias/joint pain, back pain, swelling in the extremities Integumentary: Skin: no abnormal mole, no r ashes Neurologic: Neurologic: no numbness, no dizziness, no headaches Psychiatric: Psych: no sleep disturbances , depression Endocrine: Endocrine: no fatigue Hematologic/Lymphatic: Hematologic/Lymphatic easy b ruising Allergic/Immunologic: Allergy/Immunologic: no sinu s pressure, runny nose Physical Exam General Adult Exam (Female) Reported By: Patient Constitutional: General Appearance: healthy- appearing, well-developed, overweight. Level of Distress: NAD Psychiatric: Insight: poor insight. Menta l Status: active and alert. Orientation: to place, to person. Memory: remote memory normal, recent memory abnormal Head: Head: normocephalic, atrauma tic Eyes: Lids and Conjunctivae: no di scharge, no pallor, injected; stye on lower lid. EOM: EOMI. Sclerae: non-icteric ENMT: Ears: no lesions on external ear; tender over left ( not right ) TMJ per pt. Hearing: no hearing loss. Nose: no lesions on external nose Lungs: Respiratory effort: no dyspn ea Musculoskeletal:: Extremities: edema; B LE Neurologic: Cranial Nerves: grossly inta ct. Coordination and Cerebellum: no tremor Skin: Inspection and palpation: no rash, no lesions, no jaundice"
--- OUTSIDE RECORDS SUMMARY | 2020-04-06 08:51 | XMS REPORT | Encounter Summary ---
Author Organization Unknown Address [address] [place] [address] Phone [phone] Care Team Providers Care Lamp Decorator Name Role Phone Dr. Pauline Villaseñor 3 [phone] Jeni Ahmadi MD 82 [phone] Dennys Valdez MD 105 [phone] Roseann Martin 110 [phone] Reason for Visit Bilateral ear pain/problem; cough / ophelia estion Instructions 1. Persistent cough XR, chest, 2 view 2. Body mass index 30+ - obesity body mass index: care instructions learning about healthy weight Discussion Note: None recorded. Plan of Care Reminders Provider Appointments None recorded. Lab None recorded. Referral None recorded. Procedures None recorded. Surgeries None recorded. Imaging XR, Chest, 2 View 10/20/2019 [facility] [place] Medications Name Start Date atorvastatin 20 mg tablet TAKE ONE TABLET BY MOUTH ONE TIME DAILY ciprofloxacin 500 mg tablet Colace 100 mg capsule Take 1 capsule [...] tablet every day by oral route. 04/14/2019 triamterene 37.5 mg-hydrochlorothiazide 25 mg tablet triamterene/hydrochlorothiazide 37.5-25 mg tabs 1 tablet orally once a day Vitamin D3 10 mcg (400 unit) tablet Take 1 tablet twice a day by oral route. Medications Administered None recorded. Vitals Height Weight BMI Blood Pressure 5 ft 3 in 217 lbs 38.4 kg/m2 131/81 mm[Hg] Results Lab Results None recorded. Allergies [...] lable Hernia Repair Information not avai lable 10/20/2019 XR, Chest, 2 View [facility] ice [facility] [place] [address] [place] [address] (Work Place) Vaccine List Vaccine Type influenza, injectable, quadrivalent 09/08/2018 influenza, trivalent, adjuvanted 08/31/20190.5 mL pneumococcal conjugate PCV 13 02/24/2017 pneumococcal polysaccharide PPV23 08/31/20190.5 mL tetanus toxoid, unspecified formulation 06/21/1999 Social History Tobacco Smoking Status Never Smoker Past Encounters 10/20/2019 Persistent Cough; Body Mass Index 30+ - Obesity Eric Mata MD: [address] [facility] [address], [place] [phone], Ph. History of Present Illness Note:Pt here with cough, chest congestion<div>she has been on antibiotics for UTI and yeast infection. she is on antibiotic cefdinir s and antifungals. </div> <div>she has pain in the ear also. </div> Review of Systems:ROS as noted in the HPI Review of Systems None recorded. Physical Exam General Adult Exam (Female) Reported By: Patient Financial Developer: Financial Developer: present Constitutional: General Appearance: healthy- appearing Psychiatric: Insight: good judgement. Men amy Status: active and alert. Orientation: to time Head: Head: normocephalic Eyes: Lids and Conjunctivae: non-i njected. Pupils: PERRLA. EOM: EOMI ENMT: Ears: no lesions on external ear. Oropharynx: moist mucous membranes Neck: Neck: supple. Lymph Nodes: n o cervical LAD. Thyroid: no enlargement Lungs: Respiratory effort: no dyspn ea. Auscultation: breath sounds normal Cardiovascular: Heart Auscultation: RRR. Pul ses including femoral / pedal: normal throughout Back: Thoracolumbar Appearance: no rmal curvature
--- OUTSIDE RECORDS SUMMARY | 2020-04-06 08:51 | XMS REPORT | Encounter Summary ---
Author Organization Unknown Address [address] [place] [id number] Phone [phone] Care Team Providers Care Vice President Integrated Name Role Phone Dr. Pauline Villaseñor 3 [phone] Jeni Ahmadi MD 82 [phone] Dennys Valdez MD 105 [phone] Roseann Martin 110 [phone] Reason for Visit hospital follow up - TCM (VFP); Left low back pain; flu vaccine; Left ear pain/problem; Left shoulder pain; cough Instructions 1. Cervical spondylosis without myelopat hy neurosurgery referral 2. Solitary sacroiliitis sciatica: exercises physical therapy referral - [facility] , and balance training 3. Fall 4. Urinary incontinence urology referral [...] what medications you should be taking. Our [facility] can also help you in this area. Contact them at . [facility] can help you choose the best Home Health agency. We can also help you with clinical social worker and community resources. Call us we are here to help. If you experience any new or concerning symptoms, call us immediately at . Evening and Friday clinic hours are now available. If you have problems after hours, you can reach the [facility] doctor chiropractor sole practitioner at [phone] . Please follow up with your doctor in four weeks. Reminders Provider Appointments Est Patient 09/28/2019 10:00AM Pauline Villaseñor MD Lab None recorded. Referral Urology Referral 08/31/2019 Lymphedema Consult 08/31/2019 [facility] Neurosurgery Referral 08/31/2019 Physical Therapy Referral 08/31/2019 [facility] Dermatology Referral 08/31/2019 Procedures None recorded. Surgeries [...] Disease Stage 3; Polyneuropathy Pauline Villaseñor MD: [address] [place] [phone], Ph. History of Present Illness Shoulder pain [...] echo were normal. Discharge Information: Discharged from: [facility], Discharged to: Home, Hospital Records [...] Muscles: normal movement of all extremities. Extremities: edema; B nonpitting edema , B knees with abrasions Neurologic: Gait and Station: normal gai t, normal station. Cranial Nerves: grossly intact Skin: Inspection and palpation: ; right bahai crusted irregular lesion Lumbar Spine: Inspection: normal [...]
--- OUTSIDE RECORDS SUMMARY | 2020-04-06 08:51 | XMS REPORT ---
Author Author [facility] Address 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 Name Role Phone Saima Villaseñor MD PCP HAMPEL, KODI Attphys Unavailable Josephine Villaseñor Attphys HAMPEL, KODI Admphys Unavailable Payers Payer Name Policy Type Policy Number Effective Date Expiration Date S ource Problems Condition Name Condition Details Condition Category Status Onset Date Resolution Date Last Treatment Date Treating Clinician Comments Source Urinary incontinence Urinary Incontinence Problem Active 00:00:00 [facility] Pract ice Vitamin D deficiency Vitamin D Deficiency Problem Active 00:00:00 [facility] Pract ice Moderate major depression, single episode Moderate Freddy or Depression, Single Episode Problem Active 2019-04-14 00:00:00 [facility] Postmenopausal bleeding Postmenopausal Bleeding Problem Active 2019-02-26 00:00:00 [facility] Chronic kidney disease stage 3 Chronic Kidney Disease Stage 3 Probl em Active 2019-01-18 00:00:00 [facility] History of bilateral mastectomy History of Bilateral Mastectomy Pro blem Active 2019-01-18 00:00:00 [facility] Cervical post-laminectomy syndrome Cervical post-laminectomy syn drome Disease Active 2018-09-09 00:00:00 [place] 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 Disease Active 2018-09-09 00:00:[address] Lumbar post-laminectomy syndrome Lumbar post-laminectomy syndrom e Disease Active 2018-09-09 00:00:00 Bonita Vasquez Lumbosacral radiculitis Lumbosacral radiculitis Disease Active 2018-09-09 00:00:00 Jordon petty Scoliosis of lumbar spine Scoliosis of lumbar spine Disease Ac tive 2018-09-09 00:00:00 Jordon petty Spondylolisthesis Spondylolisthesis Disease Active 2018-09-09 00:00:00 Jordon Vasquez Complex tear of medial meniscus of right knee Complex tear of medial meniscus of right knee Disease Active 2018-09-09 00:00:00 Dillon Vasquez Bilateral tinnitus Bilateral Tinnitus Problem Active 2018-09-04 00:00:0 0 [facility] Osteoarthritis Osteoarthritis Disease Active 2018-07-06 00:00:00 Jordon Vasquez Generalized anxiety disorder Generalized Anxiety Disorder Problem Active 2018-05-07 00:00:00 [facility] Lymphedema Lymphedema Problem Active 2018-05-07 00:00:00 [facility] Chronic pain of right knee Chronic pain of right knee Disease Active 2018-04-06 00:00:00 Jordon petty Lymphedema Lymphedema Disease Active 2018-04-06 00:00:00 Jordon Vasquez Morbid obesity Morbid Obesity Problem Active 2017-12-08 00:00:00 [facility] Polyneuropathy Polyneuropathy Problem Active 2017-12-08 00:00:00 [facility] Peripheral venous insufficiency Peripheral Venous Insufficiency Pro blem Active 2017-12-08 00:00:00 [facility] Solitary sacroiliitis Solitary Sacroiliitis Problem Active 201 06-17-22 00:00:00 [facility] P ractice Body mass index 40+ - severely obese Body Mass Index 40+ - S everely Obese Problem Active 2017-12-08 00:00:00 [facility] Mixed hyperlipidemia Mixed Hyperlipidemia Problem Active 00:00:00 [facility] Pract ice Nuclear cataract Nuclear Cataract Problem Active 2017-02-24 00:00:00 [facility] Allergic rhinitis due to pollen Allergic Rhinitis Due to Pollen Pro blem Active 2016-12-06 00:00:00 [facility] Gastro-esophageal reflux disease with esophagitis Sylwia ro-esophageal Reflux Disease with Esophagitis Problem Active 2016-12-06 00:00:00 [facility] Minimal cognitive impairment Minimal Cognitive Impairment Problem Active 2016-11-14 00:00:00 [facility] D05.90 - UNSPECIFIED TYPE OF CARCINOMA D05.90 - UNSPECIFIED TYPE OF CARCINOMA Active 10/18/2016 [facility] Diagnosis Active 2016-10-18 00:01:00 2016-10-24 19:13:00 [facility] M51.27 - OTHER INTERVERTEBRAL DISC DISP M51.27 - OTHER INTERVERTEBRAL DISC DISP Active 09/03/2016 [facility] Diagnosis Active 2016-09-03 00:01:00 2016-09-11 08:27:00 [facility] Obstructive sleep apnea of adult Obstructive Sleep Apnea of Adul t Problem Active 2016-09-03 00:00:00 [facility] Abdominal aortic aneurysm without rupture Abdominal Ao rtic Aneurysm without Rupture Problem Active 2016-09-03 00:00:00 [place] [facility] Personal history of primary malignant neoplasm of umer st Personal History of Primary Malignant Neoplasm of Breast Problem Active 2016-09-03 00:00:00 [facility] Muscle spasm Muscle spasm Disease Active 2014-06-22 00:00:00 Jordon Vasquez Urinary retention Urinary retention Disease Active 2014-06-22 00:00:00 Jordon Vasquez Pure hypercholesterolemia Pure Hypercholesterolemia Problem Active [facility] Severe obesity Severe Obesity Problem Active [facility] Inflammation of sacroiliac joint Inflammation of Sacroiliac Join t Problem Active [facility] Oropharyngeal dysphagia Oropharyngeal Dysphagia Problem Active [facility] Allergies, Adverse Reactions, Alerts Allergy Name Allergy Type Status Severity Reaction(s) Onset Date Inacti ve Date Treating Clinician Comments Source black pepper FA Active MO 2019-08-18 00:00:00 [facility] Amoxicillin Propensity to adverse reactions to drug Active Rash 2018-04-06 00:00:00 Jordon lewis No Known Allergies DA Active U 2014-05-05 00:00:00 [facility] Amoxicillin Allergy to substance Active Mild to moderate Hives [facility] Family History Family Member Diagnosis Comments Start Date Stop Date Source Natural father Heart disease Jordon Vasquez Natural sister Diabetes Jordon Pr thodist Social History Social Habit Start Date Stop Date Quantity Comments Source Sex Assigned At [facility] Alcohol intake 2018-08-25 00:00:00 2018-08-25 00:00:00 Current non-drinker of alcohol (finding) Jordon Vasquez Social History 2016-09-12 04:59:00 2016-09-12 04:59:00 [facility] Smoking Status Start Date Stop Date Source Never smoker Jordon Bansal t Medications Ordered Medication Name Filled Medication Name Start Date Stop Da te Current Medication? Ordering Clinician Indication Dosage Frequency Signature (SIG) Comments Components Source Miralax 17 gram/dose oral powder Once a day: as direct ed - Miralax 17 gram/dose oral powder Once a day: as directed - 2019-04-06 00:00:00 No Miralax 17 gram/dose oral powder Once a day: as directed - [facility] methylPREDNISolone acetate (DEPO-MEDROL) injection 40 mg 2018-04-06 15:15:00 Yes Osteoarthritis of right knee, unspecified osteoarthritis type 40mg Jordon Vasquez bupivacaine (MARCAINE) 0.5 % (5 mg/mL) injection 5 mg 2018-04-06 15:15:00 Yes Osteoarthritis of right knee, unspecified osteoarthritis type 5m g Jordon Vasquez aspirin (ECOTRIN) 81 MG enteric coated tablet 2018-04-06 14:49:3 8 Yes Take 1 tablet every day by oral route. Jordon Vasquez omeprazole (PriLOSEC) 40 MG capsule 2018-04-06 14:49:38 Yes omeprazole 40 mg cpdr Jordon Vasquez multivit-minerals/ferrous fum (MULTI VITAMIN ORAL) 2018-03 14:49:38 Yes Take by mouth. Bonita Vasquez atorvastatin (LIPITOR) 20 MG tablet 2018-03-02 00:00:00 Yes Jordon Vasquez rivastigmine (EXELON) 9.5 mg/24 hr 2018-02-21 00:00:00 Yes Jordon Vasquez Flonase Allergy Relief 50 mcg/actuation nasal spray,suspension Once a day: 1 spray in each nostril 50 MCG/ACT Flonase Allergy Relief 50 mcg/actuation nasal spray,suspension Once a day: 1 spray in each nostril 50 MCG/ACT 2016-12-13 00:00:00 No Flonastyrel Al lergy Relief 50 mcg/actuation nasal spray,suspension Once a day: 1 spray in each nostril 50 MCG/ACT [facility] Multi-Vitamin tablet : 1 tablet by mouth daily Multi-V itamin tablet : 1 tablet by mouth daily 2012-09-25 00:00:00 No Multi-Vitamin tablet : 1 tablet by mouth daily [facility] Aspir-81 mg tablet,delayed release Once a day: 1 table t 81 MG Aspir-81 mg tablet,delayed release Once a day: 1 tablet 81 MG No Aspir-81 mg tablet,delayed release Once a day: 1 tablet 81 MG [facility] atorvastatin 10 mg tablet Once a day: 1 tablet 10 MG a torvastatin 10 mg tablet Once a day: 1 tablet 10 MG No atorvastatin 10 mg tablet Once a day: 1 tablet 10 MG [facility] ice Colace 100 mg capsule Once a day: 1 capsule as needed 100 MG Colace 100 mg capsule Once a day: 1 capsule as needed 100 MG No Colace 100 mg capsule Once a day: 1 capsule as needed 100 MG [facility] Flomax 0.4 mg capsule Once a day: 1 caps ule 30 minutes after the same meal each day 0.4 MG Flomax 0.4 mg capsule Once a day: 1 caps ule 30 minutes after the same meal each day 0.4 MG No Wilman max 0.4 mg capsule Once a day: 1 capsule 30 minutes after the same meal each day 0.4 MG [facility] furosemide 40 mg tablet Take 1 tablet every day by ora l route. furosemide 40 mg tablet Take 1 tablet every day by oral route. No furosemide 40 mg tablet Take 1 tablet every day by oral route. [facility] oxazepam 15 mg capsule Three times a day: 1 capsule as needed 15 MG oxazepam 15 mg capsule Three times a day: 1 capsule as needed 15 MG No oxazepam 15 mg capsule Three times a day: 1 capsule as needed 15 MG [facility] PreserVision AREDS 1 capsule orally once a day PreserV ision AREDS 1 capsule orally once a day No Preser Vision AREDS 1 capsule orally once a day [facility] sertraline 50 mg tablet Take 1 tablet every day by ora l route. sertraline 50 mg tablet Take 1 tablet every day by oral route. No sertraline 50 mg tablet Take 1 tablet every day by oral route. [facility] Immunizations Ordered Immunization Name Filled Immunization Name Date Status Comments Source influenza, trivalent, adjuvanted influenza, trivalent, adjuv anted 2019-08-31 19:06:00 Completed [facility] ice pneumococcal polysaccharide PPV23 pneumococcal polysaccharid e PPV23 2019-08-31 19:06:00 Completed [facility] ice influenza, seasonal, injectable influenza, seasonal, injecta ble 2018-09-08 00:00:00 Completed [facility] ice influenza, seasonal, injectable influenza, seasonal, injecta ble 2017-07-25 00:00:00 [facility] pneumococcal conjugate PCV 13 pneumococcal conjugate PCV 13 2016 00:00:00 Completed [facility] tetanus toxoid, unspecified formulation tetanus toxoid, unsp ecified formulation 1999-06-21 00:00:00 [facility]pleted [facility] Vital Signs Vital Name Observation Time Observation Value Comments Source BP Diastolic 2020-04-04 00:00:00 75 mm[Hg] [facility] Height 2020-04-04 00:00:00 63 [in_i] [facility] BMI (Body Mass Index) 2020-04-04 00:00:00 38.1 kg/m2 [facility] BP Systolic 2020-04-04 00:00:00 108 mm[Hg] [facility] Body Weight 2020-04-04 00:00:00 215 [lb_av] [facility] Height 2020-03-14 00:00:00 63 [in_i] [facility] BP Diastolic 2019-10-20 00:00:00 81 mm[Hg] [facility] Height 2019-10-20 00:00:00 63 [in_i] [facility] BMI (Body Mass Index) 2019-10-20 00:00:00 38.4 kg/m2 [facility] BP Systolic 2019-10-20 00:00:00 131 mm[Hg] [facility] Body Weight 2019-10-20 00:00:00 217 [lb_av] [facility] BP Diastolic 2019-08-31 00:00:00 76 mm[Hg] [facility] Height 2019-08-31 00:00:00 63 [in_i] [facility] BMI (Body Mass Index) 2019-08-31 00:00:00 38.8 kg/m2 [facility] BP Systolic 2019-08-31 00:00:00 105 mm[Hg] [facility] Body Weight 2019-08-31 00:00:00 219 [lb_av] [facility] Procedures Procedure Date / Time Performed Performing Clinician Sourc e electrocardiogram 2020-04-04 00:00:00 [facility] X-RAY OF CHEST 2 VIEW 2019-10-20 00:00:00 [facility] Cardiac Catheterization 2019-08-18 00:00:00 [facility] Colonoscopy 2015-08-08 00:00:00 [facility] Lumpectomy 2013-11-17 00:00:00 [facility] Laminectomy 2012-11-17 00:00:00 [facility] Practice Back Surgery 2011-11-17 00:00:00 [facility] Breast Surgery 2010-11-17 00:00:00 [facility] Mastectomy (Both Breasts) 2010-11-17 00:00:00 [facility] Appendectomy 1942-11-17 00:00:00 [facility] ENT Surgery (Ear, Nose, Throat) 1942-11-17 00:00:00 [facility] Tonsillectomy [facility] ractice Hernia Repair [facility] P ractice Plan of Care Planned Activity Planned Date Details Comments Source Future Scheduled Test 2020-06-17 00:00:00 INFLUENZA VACCINE [code = INFLUENZA VACCINE] [facility] Future Scheduled Test 2003 00:00:00 65+ PNEUMOCOCCAL V ACCINE (1 of 2 - PCV13) [code = 65+ PNEUMOCOCCAL VACCINE (1 of 2 - PCV13)] [facility] Future Scheduled Test 1988 00:00:00 SHINGLES VACCINES (#1) [code = SHINGLES VACCINES (#1)] [facility] Encounters Start Date/Time End Date/Time Encounter Type Admission Type [facility] Care Department Encounter ID Source 2020-04-04 00:00:00 2020-04-04 00:00:00 Josephine Pugh D: [address], [place] [address], Ph. V [facility] [place] [id number] [facility] 2020-03-14 00:00:00 2020-03-14 00:00:00 Josephine Pugh: [address], [place] [address], Ph. V [facility] - _[facility] [place] [id number] [facility] 2019-10-20 00:00:00 2019-10-20 00:00:00 Eric Mata MD: [address], [place] [address], Ph. V [facility] - VM_[facility] [place] [id number] [facility] 2019-08-31 00:00:00 2019-08-31 00:00:00 Josephine Pugh D: [address], [place] [address], Ph. V [facility] - VFP[facility] [id number] [facility] 2016-10-21 16:43:00 2016-10-22 05:59:00 Outpt Diag Services [facility] Outpatient Imaging - Rochelle Carreon's [id number] [facility] Rochelle Mooney n's 2016-10-21 10:43:00 2016-10-21 23:59:00 Outpatient Sindhu Villaseñor [id number] 2016-10-18 14:23:00 2016-10-19 05:59:00 Outpt Diag Services [facility] Outpatient Imaging - Rochelle Carreon's [id number] [facility] Rochelle Mooney n's 2016-10-18 08:23:00 2016-10-18 23:59:00 Outpatient Sindhu Villaseñor [id number] 2016-09-11 13:17:00 2016-09-12 04:59:00 Outpt Diag Services [facility] Outpatient Imaging [facility] [id number] [facility] 2016-09-11 08:17:00 2016-09-11 23:59:00 Outpatient Sindhu Villaseñor [id number] Results Test Description Test Time Test Comments Results Result Comments Source RETROGRADE ODINOGRAM 2020-04-05 14:46:00 [place] [address] Patient Name: RIGO SCOTT MR #: [id number] : 1940 Age/Sex: 79/F Req #: [id number] Adm Physician: Ordered by: KODI VALENTE MD Report #: [id number] Location: OR Room/Bed: Procedure: [id number] DX/RETROGRADE PYELOGRAM Exam Date: 04/05/20 Exam Time: 1244 REPORT STATUS: Signed OR Fluoroscopy: IMPRESSION: Fluoroscopy service provided in the OR. Interpretation not requested. Signed by: Jeancarlos Roberson MD on 04/05/2020 2:47 PM Dictated By: JEANCARLOS ROBERSON MD 1447 Trans cribed By: HAI on 04/05/20 1447 COPY TO: KODI VALENTE MD EKG study 2020-04-04 16:54:00 Test Item Rate & Rhythm (test code = Rate & Rhythm) NSR QRS (test code = QRS) KS Interval (test code = KS Interval) QRS Duration (test code = QRS Duration) QT Interval (test code = QT Interval) [facility] 2 [id number] 14:43:00 [place] [address] Patient Name: RIGO SCOTT MR #: [id number] : 1940 Age/Sex: 79/F Req #: [id number] Adm Physician: Ordered by: KODI VALENTE MD Report #: [id number] Location: OR Room/Bed: Procedure: [id number] DX/CHEST 2 VIEWS Exam Date: 03/31/20 Exam Time: 1340 REPORT STATUS: Signed EXAMINATION: CHEST 2 VIEWS INDICATION: Pre-operative COMPARISON: None FINDINGS: LINES/TUBES:None LUNGS:The lungs are well-inflated. No focal consolidation or pulmonary edema. PLEURA:No pleural effusion or pneumothorax. M EDIASTINUM:The cardiomediastinal silhouette appears normal in size and shape. Atherosclerotic calcifications of the thoracic aorta. BONES/SOFT TISSUES:No acute osseous injury. Partially visualized cervical spine fusion hardware. Kapadia rgical clips overlying both axillae. ABDOMEN:No free air under the diaphrag m. IMPRESSION: No focal pneumonia or pulmonary edema. Signed by: Citlali Calderón MD on 03/31/2020 2:44 PM Dictated By: CITLALI CALDERÓN MD Electron ically Signed By: CITLALI CALDERÓN MD on 03/31/20 144 Transcribed By: HAI on 1443 COPY TO: KODI VALENTE MD BASIC METABOLIC PANEL 2019-08-20 07:08:00* Test Item Value Reference Range Interpretation Comments SODIUM (test code = NA) 144 mEq/L 134-147 N POTASSIUM (test code = K) 3.4 mEq/L 3.4-5.0 N CHLORIDE (test code = CL) 101 mEq/L 100-108 N CARBON DIOXIDE (test code = CO2) 34 mEq/L 21-33 H ANION GAP (test code = GAP) 12 0-20 N GLUCOSE (test code = GLU) 102 mg/dL 70-110 N BLOOD UREA NITROGEN (test code = BUN) 22 mg/dL 7-18 H GLOMERULAR FILTRATION RATE (test code = GFR) 39.3 70-80 L Units of measure = ml/min/1.73 m2 CREATININE (test code = CREAT) 1.3 mg/dL 0.6-1.3 N CALCIUM (test code = CA) 8.3 mg/dL 8.0-10.5 N COMMENTS: To be done morning of Heart CathBASIC METABOLIC [id number] 07:05:00* Test Item Value Reference Range Interpretation Comments SODIUM (test code = NA) 144 mEq/L 134-147 N POTASSIUM (test code = K) 3.4 mEq/L 3.4-5.0 N CHLORIDE (test code = CL) 101 mEq/L 100-108 N CARBON DIOXIDE (test code = CO2) 34 mEq/L 21-33 H ANION GAP (test code = GAP) 12 0-20 N GLUCOSE (test code = GLU) 102 mg/dL 70-110 N BLOOD UREA NITROGEN (test code = BUN) 22 mg/dL 7-18 H GLOMERULAR FILTRATION RATE (test code = GFR) 70-80 CREATININE (test code = CREAT) mg/dL 0.6-1.3 CALCIUM (test code = CA) 8.3 mg/dL 8.0-10.5 N COMMENTS: To be done morning of Heart CathCBC W/AUTO [id number] 06:54:00* Test Item Value Reference Range Interpretation Comments WHITE BLOOD CELL (test code = WBC) 10.00 x10 3/uL 4.5-11.0 N RED BLOOD CELL (test code = RBC) 3.76 x10 6/uL 3.54-5.02 N HEMOGLOBIN (test code = HGB) 11.5 g/dL 11.0-15.0 N HEMATOCRIT (test code = HCT) 36.2 % 33.0-45.0 N MEAN CELL VOLUME (test code = MCV) 96.3 fL 81.0-99.0 N MEAN CELL HGB (test code = MCH) 30.6 pg 27.0-33.0 N MEAN CELL HGB CONCETRATION (test code = MCHC) 31.8 g/dL 33.0-37. 0 L RED CELL DISTRIBUTION WIDTH CV (test code = RDW) 14.9 % 11.5- 14.5 H RED CELL DISTRIBUTION WIDTH SD (test code = RDW-SD) 53.1 fL 37 .0-54.0 N PLATELET COUNT (test code = PLT) 186 x10 3/uL 150-400 N MEAN PLATELET VOLUME (test code = MPV) 10.9 fL 7.0-9.0 H NEUTROPHIL % (test code = NT%) 72.9 % 56.0-77.0 N IMMATURE GRANULOCYTE % (test code = IG%) 0.5 % 0.0-2.0 N LYMPHOCYTE % (test code = LY%) 14.5 % 14.0-32.0 N MONOCYTE % (test code = MO%) 7.7 % 4.8-9.0 N EOSINOPHIL % (test code = EO%) 3.8 % 0.3-3.7 H BASOPHIL % (test code = BA%) 0.6 % 0.0-2.0 N NUCLEATED RBC % (test code = NRBC%) 0.0 % 0-0 N NEUTROPHIL # (test code = NT#) 7.29 x10 3/uL 2.0-7.6 N IMMATURE GRANULOCYTE # (test code = IG#) 0.05 x10 3/uL 0.00-0.03 H LYMPHOCYTE # (test code = LY#) 1.45 x10 3/uL 1.0-3.8 N MONOCYTE # (test code = MO#) 0.77 x10 3/uL 0.1-0.8 N EOSINOPHIL # (test code = EO#) 0.38 x10 3/uL 0.0-0.2 H BASOPHIL # (test code = BA#) 0.06 x10 3/uL 0.0-0.2 N NUCLEATED RBC # (test code = NRBC#) 0.00 x10 3/uL 0.0-0.1 N MANUAL DIFF REQUIRED (test code = MDIFF) NO COMMENTS: To be done morning of Heart Cath- DUP VEIN [id number] 13:15:00 Name: RIGO SCOTT [facility] : 1940 Age/S: 79 / F [address] [place] [address] Unit #: [id number] Loc: VICKI Hernandez [address] Phys: Leslie Mina MD Acct: [id number] Viki s Date: Status: ADM IN PHONE #: Exam Date: 08/19/2019 1243 FAX #: [phone] Reason: LE edema EXAMS: CPT CODE: [id number] DUP VEIN PARVEZ [address]231 EXAMINATION: Bilateral lo wer extremity venous Doppler 08/19/2019. CLINICAL HISTORY: Lower ex tremity edema and pain. COMPARISON: None. FINDINGS: Sonographic evaluation of the bilateral lower extremities was performed fr om the common femoral vein through the popliteal vein using grayscale, col or Doppler, and spectral analysis. The examination demonstrates normal co mpressibility, flow, respiratory variation, and response to augmentation t hroughout. The visualized portions of the posterior tibial veins i n the calves demonstrate compressibility and flow. IMPRESS ION: No sonographic evidence of deep venous thrombosis in either thigh o r the visualized calf veins. Electronically Emma d by Orlando Anne on 08/19/2019 at 1315 Reported and signed by: Devorah Anne M.D. CC: Gilma Cortez MD; Fatemeh Looney chnologist: Nava Booker RDMS(A)(RCT) Trnscb Date/T gallo: 08/19/2019 (7294) t.[facility] Orig Print D/T: S: 08/19 (7202) Probe: PAGE 1 Sign ed Report HGBA1C%2019-08-19 08:30:00* Test Item Value Reference Range Interpretation Comments HGBA1C% (test code = HGBA1C%) 6.3 %A1C 4.8-6.0 H LIPID PROFILE (CORONARY RISK)2019-08-19 08:03:00* Test Item Value Reference Range Interpretation Comments TRIGLYCERIDES (test code = TRIG) 175 mg/dL 40-150 H CHOLESTEROL (test code = CHOL) 154 mg/dL <200 CHOLESTEROL/HDL RATIO (test code = CHOLHDL) 4.05 RATIO 3.27-4.44 N RISK ASSOCIATED WITH CHOL/HDL RATIOS: RISK MALE FEMALE1/2 AVERAGE 3.43 3.27AVERAGE 4.97 4.442X AVERAGE 9.55 7.053X AVERAGE 23.39 11.04 NOTE THAT THE REFERENCE VALUE IS RELATEDTO RISK LEVELS RECOMMENDED BY THE NATL.HEART, LUNG, AND BLOOD INST. HDL CHOLESTEROL (test code = HDL) 38.0 mg/dL 39-96 L LIPOPROTEIN LDL (test code = LDL) 98 mg/dL 0-100 N <100 [id number] NEAR OPTIMAL/ABOVE [id number] HIGH>ON=537 VERY HIGH*Guidelines provided by the National Cholesterol EducationProgram Adult Treatment Panel III VITAMIN D 58-[id number] 06:35:00* Test Item Value Reference Range Interpretation Comments VITAMIN D 25-HYDROXY (test code = VITD25) 22.0 ng/mL 30-100 L BASIC METABOLIC [id number] 06:30:00* Test Item Value Reference Range Interpretation Comments SODIUM (test code = NA) 141 mEq/L 134-147 N POTASSIUM (test code = K) 3.6 mEq/L 3.4-5.0 N CHLORIDE (test code = CL) 103 mEq/L 100-108 N CARBON DIOXIDE (test code = CO2) 32 mEq/L 21-33 N ANION GAP (test code = GAP) 10 0-20 N GLUCOSE (test code = GLU) 107 mg/dL 70-110 N BLOOD UREA NITROGEN (test code = BUN) 23 mg/dL 7-18 H GLOMERULAR FILTRATION RATE (test code = GFR) 39.3 70-80 L Units of measure = ml/min/1.73 m2 CREATININE (test code = CREAT) 1.3 mg/dL 0.6-1.3 N CALCIUM (test code = CA) 8.7 mg/dL 8.0-10.5 N [id number] 06:30:00* Test Item Value Reference Range Interpretation Comments PREALBUMIN (test code = PREALB) 13.0 mg/dL 16.0-40.0 L CBC W/AUTO [id number] 05:41:00* Test Item Value Reference Range Interpretation Comments WHITE BLOOD CELL (test code = WBC) 10.76 x10 3/uL 4.5-11.0 N RED BLOOD CELL (test code = RBC) 4.08 x10 6/uL 3.54-5.02 N HEMOGLOBIN (test code = HGB) 12.3 g/dL 11.0-15.0 N HEMATOCRIT (test code = HCT) 39.4 % 33.0-45.0 N MEAN CELL VOLUME (test code = MCV) 96.6 fL 81.0-99.0 N MEAN CELL HGB (test code = MCH) 30.1 pg 27.0-33.0 N MEAN CELL HGB CONCETRATION (test code = MCHC) 31.2 g/dL 33.0-37. 0 L RED CELL DISTRIBUTION WIDTH CV (test code = RDW) 14.9 % 11.5- 14.5 H RED CELL DISTRIBUTION WIDTH SD (test code = RDW-SD) 52.9 fL 37 .0-54.0 N PLATELET COUNT (test code = PLT) 213 x10 3/uL 150-400 N MEAN PLATELET VOLUME (test code = MPV) 11.2 fL 7.0-9.0 H NEUTROPHIL % (test code = NT%) 68.3 % 56.0-77.0 N IMMATURE GRANULOCYTE % (test code = IG%) 0.5 % 0.0-2.0 N LYMPHOCYTE % (test code = LY%) 19.0 % 14.0-32.0 N MONOCYTE % (test code = MO%) 7.2 % 4.8-9.0 N EOSINOPHIL % (test code = EO%) 4.3 % 0.3-3.7 H BASOPHIL % (test code = BA%) 0.7 % 0.0-2.0 N NUCLEATED RBC % (test code = NRBC%) 0.0 % 0-0 N NEUTROPHIL # (test code = NT#) 7.35 x10 3/uL 2.0-7.6 N IMMATURE GRANULOCYTE # (test code = IG#) 0.05 x10 3/uL 0.00-0.03 H LYMPHOCYTE # (test code = LY#) 2.04 x10 3/uL 1.0-3.8 N MONOCYTE # (test code = MO#) 0.78 x10 3/uL 0.1-0.8 N EOSINOPHIL # (test code = EO#) 0.46 x10 3/uL 0.0-0.2 H BASOPHIL # (test code = BA#) 0.08 x10 3/uL 0.0-0.2 N NUCLEATED RBC # (test code = NRBC#) 0.00 x10 3/uL 0.0-0.1 N MANUAL DIFF REQUIRED (test code = MDIFF) NO UA RFLX MICR CULT IF [id number] 17:53:00* Test Item Value Reference Range Interpretation Comments UA COLOR (test code = COLU) COLORLESS YEL/STRAW UA APPEARANCE (test code = APPU) CLEAR CLEAR UA GLUCOSE DIPSTICK (test code = DGLUU) NEGATIVE NEGATIVE UA BILIRUBIN DIPSTICK (test code = BILU) NEGATIVE NEGATIVE UA KETONE DIPSTICK (test code = KETU) NEGATIVE NEGATIVE UA SPECIFIC GRAVITY (test code = SGU) 1.004 1.005-1.030 L UA BLOOD DIPSTICK (test code = HERRERA) NEGATIVE NEGATIVE UA PH DIPSTICK (test code = ISRRAEL) 7.0 5.0-7.0 N UA PROTEIN DIPSTICK (test code = PROU) NEGATIVE NEGATIVE UA UROBILINIOGEN DIPSTICK (test code = URO) 0.2 mg/dL 0.2-1.0 UA NITRITE DIPSTICK (test code = JORDON) NEGATIVE NEGATIVE UA LEUKOCYTE ESTERASE DIPSTICK (test code = LEUU) 1+ NEGA TIVE A UA WBC (test code = WBCU) 10-20 WBC/HPF 0-3 A UA RBC (test code = RBCU) 0-3 RBC/HPF 0-3 UA WBC NO REFLEX (test code = WBCUCL) 10-20 WBC/HPF 0-3 A UA BACTERIA (test code = BACU) TRACE /HPF NONE SEEN UA SQUAMOUS CELLS (test code = SQU) NONE SEEN /HPF NONE SEEN UA MUCUS (test code = MUCU) TRACE /LPF NONE SEEN Indication for culture: Flank PainSpecimen Description: CLEAN CATCH [id number] 16:20:00* Test Item Value Reference Range Interpretation Comments TROPONIN-I (test code = TROPI) < 0.015 ng/mL 0.000-0.045 N Negative: <= 0.045 Positive: >= 0.046 Correlation with serial results, other cardiac markers andclinical findings is necessary to determine the clinicalsignificance of this result. Results using different methodologies should not be comparedto one another as quantitative results may vary by method. COMMENTS: 3 troponins total (including troponin done in ED)[id number] 12:37:00* Test Item Value Reference Range Interpretation Comments TROPONIN-I (test code = TROPI) < 0.015 ng/mL 0.000-0.045 N Negative: <= 0.045 Positive: >= 0.046 Correlation with serial results, other cardiac markers andclinical findings is necessary to determine the clinicalsignificance of this result. Results using different methodologies should not be comparedto one another as quantitative results may vary by method. COMPREHENSIVE METABOLIC [id number] 08:14:00* Test Item Value Reference Range Interpretation Comments SODIUM (test code = NA) 139 mEq/L 134-147 N POTASSIUM (test code = K) 3.9 mEq/L 3.4-5.0 N CHLORIDE (test code = CL) 106 mEq/L 100-108 N CARBON DIOXIDE (test code = CO2) 28 mEq/L 21-33 N ANION GAP (test code = GAP) 9 0-20 N GLUCOSE (test code = GLU) 108 mg/dL 70-110 N BLOOD UREA NITROGEN (test code = BUN) 21 mg/dL 7-18 H GLOMERULAR FILTRATION RATE (test code = GFR) 43.1 70-80 L Units of measure = ml/min/1.73 m2 CREATININE (test code = CREAT) 1.2 mg/dL 0.6-1.3 N TOTAL PROTEIN (test code = PROT) 7.1 g/dL 6.4-8.2 N ALBUMIN (test code = ALB) 3.00 g/dL 3.4-5.0 L CALCIUM (test code = CA) 8.9 mg/dL 8.0-10.5 N BILIRUBIN TOTAL (test code = BILT) 0.7 MG/DL <1.5 N SGOT/AST (test code = AST) 16 IUnit/L 15-37 N SGPT/ALT (test code = ALT) 29 IUnit/L 15-65 N ALKALINE PHOSPHATASE TOTAL (test code = ALKP) 68 IUnit/L 20-125 N PROTHROMBIN [id number] 07:58:00* Test Item Value Reference Range Interpretation Comments PROTHROMBIN TIME PATIENT (test code = PTP) 11.6 SECONDS 9.3-12.9 N INTERNATIONAL NORMAL RATIO (test code = INR) 1.1 0.8-1.2 N TARGET INR BY INDICATION Indication INR1. Prophylaxis of venous thrombosis 2.0 - 3.0 (orthopedic surgery), Prophylaxis of venous thrombosis (other than high-risk surgery), Treatment of Deep Vein Thrombosis/Pulmonary Embolism, Prevention of systemic embolism - Tissue heart valves, Acute Myocardial Infarction (to prevent systemic embolism), Valvular heart disease, Atrial Fibrillation, Bileaflet mechanical valve in aortic position.2. Mechanical prosthetic valves (high risk), 2.5 - 3.5 Presence of Lupus Anticoagulant or Antiphospholipid Antibodies, Prevention of systemic embolism - Acute Myocardial Infarction (to prevent recurrent infarct). CBC W/AUTO [id number] 07:49:00* Test Item Value Reference Range Interpretation Comments WHITE BLOOD CELL (test code = WBC) 10.58 x10 3/uL 4.5-11.0 N RED BLOOD CELL (test code = RBC) 4.06 x10 6/uL 3.54-5.02 N HEMOGLOBIN (test code = HGB) 12.3 g/dL 11.0-15.0 N HEMATOCRIT (test code = HCT) 39.4 % 33.0-45.0 N MEAN CELL VOLUME (test code = MCV) 97.0 fL 81.0-99.0 N MEAN CELL HGB (test code = MCH) 30.3 pg 27.0-33.0 N MEAN CELL HGB CONCETRATION (test code = MCHC) 31.2 g/dL 33.0-37. 0 L RED CELL DISTRIBUTION WIDTH CV (test code = RDW) 14.9 % 11.5- 14.5 H RED CELL DISTRIBUTION WIDTH SD (test code = RDW-SD) 53.4 fL 37 .0-54.0 N PLATELET COUNT (test code = PLT) 200 x10 3/uL 150-400 N MEAN PLATELET VOLUME (test code = MPV) 10.9 fL 7.0-9.0 H NEUTROPHIL % (test code = NT%) 65.8 % 56.0-77.0 N IMMATURE GRANULOCYTE % (test code = IG%) 0.7 % 0.0-2.0 N LYMPHOCYTE % (test code = LY%) 19.3 % 14.0-32.0 N MONOCYTE % (test code = MO%) 8.2 % 4.8-9.0 N EOSINOPHIL % (test code = EO%) 5.3 % 0.3-3.7 H BASOPHIL % (test code = BA%) 0.7 % 0.0-2.0 N NUCLEATED RBC % (test code = NRBC%) 0.0 % 0-0 N NEUTROPHIL # (test code = NT#) 6.97 x10 3/uL 2.0-7.6 N IMMATURE GRANULOCYTE # (test code = IG#) 0.07 x10 3/uL 0.00-0.03 H LYMPHOCYTE # (test code = LY#) 2.04 x10 3/uL 1.0-3.8 N MONOCYTE # (test code = MO#) 0.87 x10 3/uL 0.1-0.8 H EOSINOPHIL # (test code = EO#) 0.56 x10 3/uL 0.0-0.2 H BASOPHIL # (test code = BA#) 0.07 x10 3/uL 0.0-0.2 N NUCLEATED RBC # (test code = NRBC#) 0.00 x10 3/uL 0.0-0.1 N MANUAL DIFF REQUIRED (test code = MDIFF) NO - XR CHEST 1 [id number] 07:01:00 FAX: Gilma Villegas MD [phone] [place]: St: [facility] FAX: Ralph Chiang MD [phone] Name: RIGO SCOTT [facility] : 1940 Age/S: 79/F [address] [place] [address] Blvd Unit #: [id number] Loc: [place] [address] Phys: Ralph Chiang MD Acct: [id number] Dis Date: Status: REG ER PHONE #: [phone] Exam Date: 08/18/2019 0655 FAX #: [phone] Reason: Chest Pain EXAMS: CPT CODE: [id number] XR CHEST 1 V [id number] Chest, single view dated 08/18/2019. HISTORY: Chest pain. Comparison is made to a prior study dated 05/03/2014. The heart appears enlarged with left ventricular prominence. The aortic arch appears ectatic and contains atherosclerotic calcification. The lungs appear clear. The pulmonary vasculature is normal in caliber. No acute pleural space abnormalities are identified. IMPRESSION: 1. No radiographic evidence of acute cardiopulmonary disease. SL: 131 at 0701 Reported and signed by: Camilo Guillaume M.D. CC: Gilma Cortez MD; Ralph Chiang MD Techn ologist: RT Agnes(R) Trnscrd Date/Alonzo e/By: 08/18/2019 (07) : By: JorjeM Orig Print D/T: S: 08/18/2019 (1845) PAGE 1 Signed Report - XR SHOULDER 2 + V [id number] 06:57:00 FAX: Gilma Villegas MD [phone] [place]: St: REG FAX: Ralph Chiang MD [phone] Name: RIGO SCOTT [facility] : 1940 Age/S: 79/F [address] [place] [address] Unit #: [id number] Loc: [place] [address] Phys: Ralph Chiang MD Acct: [id number] Dis Date: Status: REG ER PHONE #: [phone] Exam Date: 08/18/2019 06 FAX #: [phone] Reason: pain EXAMS: CPT CODE: [id number] XR SHOULDER 2 + [place] [address] Left shoulder, 3 views dated 08/18/2019. HISTORY: Left shoulder pain. Images of the left shoulder were obtained in 3 projections and demonstrate no evidence of acute fracture or obvious bone destruction. The humeral head is normally located. Narrowing of the suba cromial space is noted and may be an indicator of a rotator cuff tear. Th e acromioclavicular and coracoclavicular spaces appear preserved. D egenerative changes are identified in the acromioclavicular joint. Multip le surgical clips are noted in the left axilla. IMPRESSION: 1. No acute bony abnormalities of the left shoulder are detected. SL: 131 at 0657 Reported and signed by: Camilo Guillaume M.D. CC: Gilma Cortez MD; Ralph Chiang MD Technologist: RT Agnes(R) Trnscrd Date/Time/By: 08/18/2019 (0657) : By: Dinesh Orig Print D/T: S: 08/18/2019 (0757) PAGE 1 Signed Report TROPONIN-I [id number] 06:47:00* Test Item Value Reference Range Interpretation Comments TROPONIN-I RAPID (test code = TROPIRAP) 0.00 ng/mL 0.00-0.08 N Performed by certified edging machine operator at [facility] Negative: <= 0.08 Positive: >= 0.09An elevated troponin value alone is not sufficient todiagnose a myocardial infarction. Rather, the patient sclinical presentation (history, physical exam) and ECGshould be used in conjunction with troponin in thediagnostic evaluation of suspected myocardial infarction. Aserial sampling protocol is recommended to facilitate the identification of temporal changes in troponin levels characteristic of CA.
--- NOTE | 2020-04-06 10:00 | NUR ---
VAGINAL PACKING REMOVED. NO ACTIVE BLEEDING NOTED. C/O FEELING LIKE SHE HAS TO HAVE A BM BUT INSTEASD KEEPS PASSING GAS WITH RELIEF
--- OUTSIDE RECORDS SUMMARY | 2020-04-06 10:12 | XMS REPORT | Continuity of Care Document ---
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 Real-time ultrasound of both breasts was performed. The entire right and left mastectomy sites were evaluated including all four quadrants, axilla, and axillary tail. There are no abnormal-appearing lymph nodes in both axilla. There is no complex cyst, suspicious mass, or abnormal echotexture. IMPRESSION: BENIGN There is no sonographic evidence of malignancy. Ever Aguilar M.D. mt/:10/21/2016 11:33:56 Viscose Cellar Charge Hand: Jael Junior R.D.M.S, [facility] This exam was dictated and interpreted by [id number] for [facility]. letter sent: Normal exam Ultrasound BI-RADS: 2 Benign 10/21/2016 [facility] Bone Density DXA [employer] MA [...] This exam was dictated and interpreted by [facility], [place] [address]. Thi Lozano M.D. sg/:10/21/2016 17:05:51 Viscose Cellar Charge Hand: Aurora Clemons, [facility] 10/18/2016 [facility] Spine lumbar wo contrast MRI E [...] ao rta and common iliac arteries. SL: [id number] 09/11/2016 [facility] Abdomen complete US EXAM: Ultr asound [...] cm. 2. Cholelithiasis. 3. Fatty liver. SL: [id number] [facility]11[facility] [place] Consultation Notes No Data Provided for This Section Discharge Summaries No Data Provided for This Section History and Physicals No Data Provided for This Section Vital Signs No Data Provided for This Section Encounters Location Location Details Encounter Type Encounter Number Reason For Visit Attending Provider ADM Date DC Date Status Source [facility] [place] [facility] [id number] Pauline Kasi 09/11/2016 09/12/2016 [facility] [id number] Pauline Kasi 10/18/2016 10/19/[address] [facility] Outpatient [facility] [place] [facility] [id number] Pauline Kasi 10/21/2016 10/22/[address] [facility] [place] [facility] Procedures No Data Provided for This Section Assessment and Plan No Data Provided for This Section Plan of Care No Data Provided for This Section Social History Social History Date Source No data available for this section 10/22/[address] [facility] No data available for this section 09/12/2016 [facility] [place] Family History No Data Provided for This Section Advance Directives No Data Provided for This Section Functional Status No Data Provided for This Section
--- OUTSIDE RECORDS SUMMARY | 2020-04-06 10:12 | XMS REPORT | Clinical Summary ---
Author Author [facility] [employer] [facility] [employer] Address Unknown Phone Unavailable Care Team Providers Care Development Coach Name Role Phone Pauline Villaseñor MD PCP [...] [employer] [facility] CIGNA xxxxxxxxxxx 2017-P [facility] ADV 775 04 Advance Directives For more information, please contact: [phone] Recording Monitor Explanation Type Date Recorded Advance Directives, Living Will and Medical Power of [employer]
--- OUTSIDE RECORDS SUMMARY | 2020-04-06 10:13 | XMS REPORT | Encounter Summary ---
Author Organization Unknown Address [address] [place] [address] Phone [phone] Care Team Providers Care Assistant Activities Director Name Role Phone Dr. Pauline Villaseñor 3 [phone] Jeni Ahmadi MD 82 [phone] Dennys Valdez MD 105 [phone] Roseann Martin 110 [phone] Reason for Visit pre-op evaluation; dizziness Instructions 1. Pre-surgery evaluation electrocardiogram 2. Cystocele 3. Vertigo vertigo: care instructions 4. Lymphedema 5. Body mass index 30+ - obesity body mass index: care instructions learning about healthy weight 6. Morbid obesity Discussion Note: None recorded. Plan of Care Reminders Provider Appointments None recorded. Lab None recorded. Referral None recorded. Procedures None recorded. Surgeries None recorded. Imaging Electrocardiogram 04/04/2020 [facility]hou_[facility] Medications Name Start Date Aspir-81 mg tablet,delayed release Once a day: 1 tablet 81 MG atorvastatin 10 mg tablet Once a day: 1 tablet 10 MG Colace 100 mg capsule Once a day: 1 capsule as needed 100 MG Flomax 0.4 mg capsule Once a day: 1 capsule 30 minutes after the same meal each day 0.4 MG Flonase Allergy Relief 50 mcg/actuation nasal spray,suspension Once a day: 1 spray in each nostril 50 MCG/ACT 12/13/2016 furosemide 40 mg tablet Take 1 tablet every day by oral route. Miralax 17 gram/dose oral powder Once a day: as directed - 04/06/2019 Multi-Vitamin tablet : 1 tablet by mouth daily 09/25/2012 oxazepam 15 mg capsule Three times a day: 1 capsule as needed 15 MG PreserVision AREDS 1 capsule orally once a day sertraline 50 mg tablet Take 1 tablet every day by oral route. Medications Administered None recorded. Vitals Height Weight BMI Blood Pressure 5 ft 3 in 215 lbs 38.1 kg/m2 108/75 mm[Hg] Results Lab Results Date Name Specimen Result Interpretation Description Value Range Status Address 04/04/2020 Electrocardiogram Rate & Rhythm NSR Vm[facility] [place]: [address], [place] Qrs Vm_u_cle ar [place]: [address] [place] Interval Vm_ hou_clear [place]: [address] [place] Duration Vm _hou_clear [place]: [address], [place] QT Interval Vm_ hou_clear [place]: 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 12/06/2016 Gastro-esophageal Reflux Disease with Esophagitis Active 12/06/2016 Constipation Active 12/13/2016 Nuclear Cataract Active 02/24/2017 Mixed Hyperlipidemia Active [...] Deficiency Active 08/31/2019 Urinary Incontinence Active 03/01/2020 Pure Hypercholesterolemia Active Histor y Severe Obesity Active History Inflammation of Sacroiliac Joint Active History Oropharyngeal Dysphagia Active History Finding of Body Mass Index Active Histo ry Procedures Date Name Performed by 08/18/2019 Cardiac [...] lable Hernia Repair Information not avai lable 04/04/2020 Electrocardiogram Vm_hou_clear [place] [address] [place] [address] (Work Place) Vaccine List Vaccine Type influenza, seasonal, injectable 07/25/20170.5 mL 09/08/20180.5 mL influenza, trivalent, adjuvanted 08/31/20190.5 mL pneumococcal conjugate PCV 13 02/24/2017 pneumococcal polysaccharide PPV23 08/31/20190.5 mL tetanus toxoid, unspecified formulation 06/21/1999 Social History Tobacco Smoking Status Never Smoker Past Encounters 04/04/2020 Pre-surgery Evaluation; Cystocele; Vertigo; Lymphedema; Body Mass Index 30+ - Obesity; Morbid Obesity Pauline Villaseñor MD: [address] [facility] [address], [place] [address], Ph. 03/14/2020 Acute Conjunctivitis; Advance Directive Discussed with Patient; Depression Screening; Depression Screening Positive; Alcohol Consumption Screening; Generalized Anxiety Disorder; Mixed Hyperlipidemia; Abdominal Aortic Aneurysm without Rupture; Chronic Kidney Disease Stage 3; Moderate Major Depression, Single Episode; Polyneuropathy; Lymphedema; Cystocele Pauline Villaseñor MD: [address] [facility] [address], [place] [address], Ph. History of Present Illness Note:In person visit.<div>
</div><div>An 79-year-old female presents for pre- op evaluation.</div><div>
</div><div>Pre surgery evaluation:
</div><div> She is scheduled for bladder surgery tomorrow @8 in the morning.
</div><div>< br></div><div>Vertigo:
</div><div>Reports dizziness.
</div><div>It has been a chronic issue for the patient. Patient has seen ENT. She feels like it was a little bit worse today because of the mask.
</div><div>
</div><div> Lymphedema:
</div><div>Patient has been elevating her legs and taking Furosemide.
</div><div>
</div><div>Additional comments:</div><div> Attributes dark colored urine to inadequate drinking of water.</div> Review of Systems Comprehensive General Adult ROS Reported By: Patient ENMT: Mouth/Throat: ; Sore throat tickles Cardiovascular: Cardiovascular: no chest temitope n; no SOB Respiratory: Respiratory: ; no breathing issues Gastrointestinal: Gastrointestinal: no abdomin al pain, no nausea, no vomiting; No bowel issues Genitourinary: Genitourinary: ; Clear but d ark colored urineNo dysuria or cloudy urine Musculoskeletal: Musculoskeletal: ; No lymphe aliyah Neurologic: Neurologic: no headaches, di zziness Physical Exam General Adult Exam (Female) Reported By: Patient Constitutional: General Appearance: healthy- appearing, well-developed, obese. Level of Distress: NAD. Ambulation: limited ambulation Psychiatric: Mental Status: active and al ert, normal mood, normal affect. Orientation: to time, to place, to person Head: Head: normocephalic, atrauma tic Eyes: Pupils: PERRLA. EOM: EOMI ENMT: Ears: EACs clear, TMs clear. Nose: no sinus tenderness. Oropharynx: moist mucous membranes, no erythema, no exudates Neck: Neck: supple. Lymph Nodes: n o cervical LAD Lungs: Auscultation: breath sounds normal, good air movement, no wheezing, no rales/crackles, no rhonchi Cardiovascular: Heart Auscultation: RRR; She has grade 3/6 systolic murmur. Neck vessels: no carotid bruits Abdomen: Inspection and Palpation: so ft, non-distended, no tenderness, no guarding, no rebound tenderness, no masses Musculoskeletal:: Motor Strength and Tone: nor mal motor strength, normal tone. Joints, Bones, and Muscles: normal movement of all extremities. Extremities: no cyanosis; Her normally edematous extremities are not edematous today, actually looks really good Neurologic: Gait and Station: irregular gait. Cranial Nerves: grossly intact. Sensation: grossly intact Skin: Inspection and palpation: no rash, no ulcer
--- OUTSIDE RECORDS SUMMARY | 2020-04-06 10:13 | XMS REPORT ---
Author Author [facility] Address 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 Hand Name Role Phone Saima Villaseñor MD PCP HAMPEL, KODI Attphys Unavailable Josephine Villaseñor Attphys HAMPEL, KODI Admphys Unavailable Payers Payer Name Policy Type Policy Number Effective Date Expiration Date S ource Problems Condition Name Condition Details Condition Category Status Onset Date Resolution Date Last Treatment Date Treating Clinician Comments Source Urinary incontinence Urinary Incontinence Problem Active 00:00:00 [facility] ice Vitamin D deficiency Vitamin D Deficiency Problem Active 00:00:00 [facility] ice Moderate major depression, single episode Moderate Freddy or Depression, Single Episode Problem Active 2019-04-14 00:00:00 [facility] Postmenopausal bleeding Postmenopausal Bleeding Problem Active 2019-02-26 00:00:00 [facility] Chronic kidney disease stage 3 Chronic Kidney Disease Stage 3 Probl em Active 2019-01-18 00:00:00 [facility] History of bilateral mastectomy History of Bilateral Mastectomy Pro blem Active 2019-01-18 00:00:00 [facility] Cervical post-laminectomy syndrome Cervical post-laminectomy syn drome Disease Active 2018-09-09 00:00:00 [place] Displacement of lumbar intervertebral disc without mye [...] Bilateral Tinnitus Problem Active 2018-09-04 00:00:0 0 [facility] Osteoarthritis Osteoarthritis Disease Active 2018-07-06 00:00:00 Jordon Vasquez Generalized anxiety disorder Generalized Anxiety Disorder Problem Active 2018-05-07 00:00:00 [facility] Lymphedema Lymphedema Problem Active 2018-05-07 00:00:00 [facility] Chronic pain of right knee Chronic pain of right knee Disease Active 2018-04-06 00:00:00 Jordon petty Lymphedema Lymphedema Disease Active 2018-04-06 00:00:00 Jordon Vasquez Morbid obesity Morbid Obesity Problem Active 2017-12-08 00:00:00 [facility] Polyneuropathy Polyneuropathy Problem Active 2017-12-08 00:00:00 [facility] Peripheral venous insufficiency Peripheral Venous Insufficiency Pro blem Active 2017-12-08 00:00:00 [facility] Solitary sacroiliitis Solitary Sacroiliitis Problem Active 201 06-17-22 00:00:00 [facility] P ractice Body mass index 40+ - severely obese Body Mass Index 40+ - S everely Obese Problem Active 2017-12-08 00:00:00 [facility] Mixed hyperlipidemia Mixed Hyperlipidemia Problem Active 00:00:00 [facility] ice Nuclear cataract Nuclear Cataract Problem Active 2017-02-24 00:00:00 [facility] Allergic rhinitis due to pollen Allergic Rhinitis Due to Pollen Pro blem Active 2016-12-06 00:00:00 [facility] Gastro-esophageal reflux disease with esophagitis Sylwia ro-esophageal Reflux Disease with Esophagitis Problem Active 2016-12-06 00:00:00 [facility] Minimal cognitive impairment Minimal Cognitive Impairment Problem Active 2016-11-14 00:00:00 [facility] D05.90 - UNSPECIFIED TYPE OF CARCINOMA D05.90 - UNSPECIFIED TYPE OF CARCINOMA Active 10/18/2016 [facility] Diagnosis Active 2016-10-18 00:01:00 2016-10-24 19:13:00 [facility] M51.27 - OTHER INTERVERTEBRAL DISC DISP M51.27 - OTHER INTERVERTEBRAL DISC DISP Active 09/03/2016 [facility] [place] Diagnosis Active 2016-09-03 00:01:00 2016-09-11 08:27:00 [facility] [place] Obstructive sleep apnea of adult Obstructive Sleep Apnea of Adul t Problem Active 2016-09-03 00:00:00 [place] [facility] Abdominal aortic aneurysm without rupture Abdominal Ao rtic Aneurysm without Rupture Problem Active 2016-09-03 00:00:[address] [facility] Personal history of primary malignant neoplasm of umer st Personal History of Primary Malignant Neoplasm of Breast Problem Active 2016-09-03 00:00:00 [facility] Muscle spasm Muscle spasm Disease Active 2014-06-22 00:00:00 Jordon Vasquez Urinary retention Urinary retention Disease Active 2014-06-22 00:00:00 Jordon Vasquez Pure hypercholesterolemia Pure Hypercholesterolemia Problem Active [facility] Severe obesity Severe Obesity Problem Active [facility] Inflammation of sacroiliac joint Inflammation of Sacroiliac Join t Problem Active [facility] Oropharyngeal dysphagia Oropharyngeal Dysphagia Problem Active [facility] Allergies, Adverse Reactions, Alerts Allergy Name Allergy Type Status Severity Reaction(s) Onset Date Inacti ve Date Treating Clinician Comments Source black pepper FA Active MO 2019-08-18 00:00:00 [facility] Amoxicillin Propensity to adverse reactions to drug Active Rash 2018-04-06 00:00:00 Jordon lewis No Known Allergies DA Active U 2014-05-05 00:00:00 [facility] Amoxicillin Allergy to substance Active Mild to moderate Hives [facility] Family History Family Member Diagnosis Comments Start Date Stop Date Source Natural father Heart disease Jordon Vasquez Natural sister Diabetes Jordon Pa thodist Social History Social Habit Start Date Stop Date Quantity Comments Source Sex Assigned At Mayelin duran [place] Alcohol intake 2018-08-25 00:00:00 2018-08-25 00:00:00 Current non-drinker of alcohol (finding) Jordon Vasquez Social History 2016-09-12 04:59:00 2016-09-12 04:59:[address] [facility] [place] [place] Smoking Status Start Date Stop Date Source [...] powder Once a day: as directed - [facility] methylPREDNISolone acetate (DEPO-MEDROL) injection 40 mg [...] 1 spray in each nostril 50 MCG/ACT [facility] Multi-Vitamin tablet : 1 tablet by mouth daily Multi-V itamin tablet : 1 tablet by mouth daily 2012-09-25 00:00:00 No Multi-Vitamin tablet : 1 tablet by mouth daily [facility] Aspir-81 mg tablet,delayed release Once a day: 1 table t 81 MG Aspir-81 mg tablet,delayed release Once a day: 1 tablet 81 MG No Aspir-81 mg tablet,delayed release Once a day: 1 tablet 81 MG [facility] atorvastatin 10 mg tablet Once a day: 1 tablet 10 MG a torvastatin 10 mg tablet Once a day: 1 tablet 10 MG No atorvastatin 10 mg tablet Once a day: 1 tablet 10 MG [facility] ice Colace 100 mg capsule Once a day: 1 capsule as needed 100 MG Colace 100 mg capsule Once a day: 1 capsule as needed 100 MG No Colace 100 mg capsule Once a day: 1 capsule as needed 100 MG [facility] Flomax 0.4 mg capsule Once a day: 1 caps ule 30 minutes after the same meal each day 0.4 MG Flomax 0.4 mg capsule Once a day: 1 caps ule 30 minutes after the same meal each day 0.4 MG No Wilman max 0.4 mg capsule Once a day: 1 capsule 30 minutes after the same meal each day 0.4 MG [facility] furosemide 40 mg tablet Take 1 tablet every day by ora l route. furosemide 40 mg tablet Take 1 tablet every day by oral route. No furosemide 40 mg tablet Take 1 tablet every day by oral route. [facility] oxazepam 15 mg capsule Three times a day: 1 capsule as needed 15 MG oxazepam 15 mg capsule Three times a day: 1 capsule as needed 15 MG No oxazepam 15 mg capsule Three times a day: 1 capsule as needed 15 MG [facility] PreserVision AREDS 1 capsule orally once a day PreserV ision AREDS 1 capsule orally once a day No Preser Vision AREDS 1 capsule orally once a day [facility] sertraline 50 mg tablet Take 1 tablet every day by ora l route. sertraline 50 mg tablet Take 1 tablet every day by oral route. No sertraline 50 mg tablet Take 1 tablet every day by oral route. [facility] Immunizations Ordered Immunization Name Filled Immunization Name Date Status Comments Source influenza, trivalent, adjuvanted influenza, trivalent, adjuv anted 2019-08-31 19:06:00 Completed [facility] ice pneumococcal polysaccharide PPV23 pneumococcal polysaccharid e PPV23 2019-08-31 19:06:00 Completed [facility] ice influenza, seasonal, injectable influenza, seasonal, injecta ble 2018-09-08 00:00:00 Completed [facility] ice influenza, seasonal, injectable influenza, seasonal, injecta ble 2017-07-25 00:00:00 [facility] pneumococcal conjugate PCV 13 pneumococcal conjugate PCV 13 2016 00:00:00 Completed [facility] tetanus toxoid, unspecified formulation tetanus toxoid, unsp ecified formulation 1999-06-21 00:00:00 Completed [facility] Vital Signs Vital Name Observation Time Observation Value Comments Source BP Diastolic 2020-04-04 00:00:00 75 mm[Hg] [facility] Height 2020-04-04 00:00:00 63 [in_i] [facility] BMI (Body Mass Index) 2020-04-04 00:00:00 38.1 kg/m2 [facility] BP Systolic 2020-04-04 00:00:00 108 mm[Hg] [facility] Body Weight 2020-04-04 00:00:00 215 [lb_av] [facility] Height 2020-03-14 00:00:00 63 [in_i] [facility] BP Diastolic 2019-10-20 00:00:00 81 mm[Hg] [facility] Height 2019-10-20 00:00:00 63 [in_i] [facility] BMI (Body Mass Index) 2019-10-20 00:00:00 38.4 kg/m2 [facility] BP Systolic 2019-10-20 00:00:00 131 mm[Hg] [facility] Body Weight 2019-10-20 00:00:00 217 [lb_av] [facility] BP Diastolic 2019-08-31 00:00:00 76 mm[Hg] [facility] Height 2019-08-31 00:00:00 63 [in_i] [facility] BMI (Body Mass Index) 2019-08-31 00:00:00 38.8 kg/m2 [facility] BP Systolic 2019-08-31 00:00:00 105 mm[Hg] [facility] Body Weight 2019-08-31 00:00:00 219 [lb_av] [facility] Procedures Procedure Date / Time Performed Performing Clinician Sourc e electrocardiogram 2020-04-04 00:00:00 [facility] X-RAY OF CHEST 2 VIEW 2019-10-20 00:00:00 [facility] Cardiac Catheterization 2019-08-18 00:00:00 [facility] Colonoscopy 2015-08-08 00:00:00 [facility] Lumpectomy 2013-11-17 00:00:00 [facility] Laminectomy 2012-11-17 00:00:00 [facility] ly Practice Back Surgery 2011-11-17 00:00:00 [facility] Breast Surgery 2010-11-17 00:00:00 [facility] Mastectomy (Both Breasts) 2010-11-17 00:00:[address] [facility] Appendectomy 1942-11-17 00:00:00 [facility] ENT Surgery (Ear, Nose, Throat) 1942-11-17 00:00:00 [facility] Tonsillectomy [facility] ractice Hernia Repair [facility] P ractice Plan of Care Planned Activity Planned Date Details Comments Source Future Scheduled Test 2020-06-17 00:00:00 INFLUENZA VACCINE [code = INFLUENZA VACCINE] [facility] Future Scheduled Test 2003 00:00:00 65+ PNEUMOCOCCAL V ACCINE (1 of 2 - PCV13) [code = 65+ PNEUMOCOCCAL VACCINE (1 of 2 - PCV13)] [facility] Future Scheduled Test 1988 00:00:00 SHINGLES VACCINES (#1) [code = SHINGLES VACCINES (#1)] [facility] Encounters Start Date/Time End Date/Time Encounter Type Admission Type [facility] Care Department Encounter ID Source 2020-04-04 00:00:00 2020-04-04 00:00:00 Josephine Pugh D: [address], [place] [address], Ph. V [facility] [id number] [facility] 2020-03-14 00:00:00 2020-03-14 00:00:00 Josephine Pugh: [address], [place] [address], Ph. V [facility] - _[facility] [id number] [facility] 2019-10-20 00:00:00 2019-10-20 00:00:00 Eric Mata MD: [address], [place] [address], Ph. V [facility] - VM_[facility] [id number] [facility] 2019-08-31 00:00:00 2019-08-31 00:00:00 Josephine Pugh D: [address], [place] [address], Ph. V [facility] [id number] [facility] 2016-10-21 16:43:00 2016-10-22 05:59:00 Outpt Diag Services [facility] Outpatient Imaging - Rochelle Carreon's [id number] [facility] Rochelle Mooney n's 2016-10-21 10:43:00 2016-10-21 23:59:00 Outpatient Sindhu Villaseñor [id number] 2016-10-18 14:23:00 2016-10-19 05:59:00 Outpt Diag Services [facility] Outpatient Imaging - [facility]le Carreon's [id number] [facility] Rochelle Mooney n's 2016-10-18 08:23:00 2016-10-18 23:59:00 Outpatient Sindhu Villaseñor [id number] 2016-09-11 13:17:00 2016-09-12 04:59:00 Outpt Diag Services [facility] Outpatient Imaging [place] [id number] [facility] [place] 2016-09-11 08:17:00 2016-09-11 23:59:00 Outpatient Sindhu Villaseñor [id number] Results Test Description Test Time Test Comments Results Result Comments Source RETROGRADE ODINOGRAM 2020-04-05 14:46:00 [place] [address] Patient Name: RIGO SCOTT MR #: [id number] : 1940 Age/Sex: 79/F Req #: [id number] Adm Physician: Ordered by: KODI VALENTE MD Report #: [id number] Location: OR Room/Bed: Procedure: [id number] DX/RETROGRADE PYELOGRAM Exam Date: 04/05/20 Exam Time: [...] Rhythm) NSR QRS (test code = QRS) [place]V Interval (test code = WV Interval) QRS Duration (test code = QRS Duration) QT Interval (test code = QT Interval) [place] 2 [id number] 14:43:00 [place] [address] Patient Name: RIGO SCOTT MR #: [id number] : 1940 Age/Sex: 79/F Req #: [id number] Adm Physician: Ordered by: KODI VALENTE MD Report #: [id number] Location: OR Room/Bed: Procedure: [id number] DX/CHEST 2 VIEWS Exam Date: 03/31/20 Exam [...] be done morning of Heart CathBASIC METABOLIC [id number] 07:05:00* Test Item Value Reference Range Interpretation [...] be done morning of Heart CathCBC W/AUTO [id number] 06:54:00* Test Item Value Reference Range Interpretation [...] done morning of Heart Cath- DUP VEIN [id number] 13:15:00 Name: RIGO SCOTT [facility] : 1940 Age/S: 79 / F [address] [place] [address] Unit #: [id number] Loc: VICKI [place] [address] Phys: Leslie Mina MD Acct: [id number] Viki s Date: Status: ADM IN PHONE #: Exam Date: 08/19/2019 1243 FAX #: [phone] Reason: LE edema EXAMS: CPT CODE: [id number] DUP VEIN PARVEZ 17774 EXAMINATION: Bilateral lo wer extremity venous Doppler [...] Nava Booker RDMS(A)(RCT) Trnscb Date/T gallo: 08/19/2019 (5099) t.MANNYR.[facility] Orig Print D/T: S: 08/19 (0122) Probe: PAGE 1 Sign ed Report HGBA1C%2019-08-19 [...] = LDL) 98 mg/dL 0-100 N <100 [id number] NEAR OPTIMAL/ABOVE [id number] HIGH>OK=183 VERY HIGH*Guidelines provided by the National Cholesterol EducationProgram Adult Treatment Panel III VITAMIN D 79-[id number] 06:35:00* Test Item Value Reference Range Interpretation Comments VITAMIN D 25-HYDROXY (test code = VITD25) 22.0 ng/mL 30-100 L BASIC METABOLIC [id number] 06:30:00* Test Item Value Reference Range Interpretation [...] code = CA) 8.7 mg/dL 8.0-10.5 N [id number] 06:30:00* Test Item Value Reference Range Interpretation Comments PREALBUMIN (test code = PREALB) 13.0 mg/dL 16.0-40.0 L CBC W/AUTO [id number] 05:41:00* Test Item Value Reference Range Interpretation [...] MDIFF) NO UA RFLX MICR CULT IF [id number] 17:53:00* Test Item Value Reference Range Interpretation [...] for culture: Flank PainSpecimen Description: CLEAN CATCH [id number] 16:20:00* Test Item Value Reference Range Interpretation [...] 3 troponins total (including troponin done in ED)[id number] 12:37:00* Test Item Value Reference Range Interpretation Comments TROPONIN-I (test code = TROPI) < 0.015 ng/mL 0.000-0.045 N Negative: <= 0.045 Positive: >= 0.046 Correlation with serial results, other cardiac markers andclinical findings is necessary to determine the clinicalsignificance of this result. Results using different methodologies should not be comparedto one another as quantitative results may vary by method. COMPREHENSIVE METABOLIC [id number] 08:14:00* Test Item Value Reference Range Interpretation [...] = ALKP) 68 IUnit/L 20-125 N PROTHROMBIN [id number] 07:58:00* Test Item Value Reference Range Interpretation [...] Infarction (to prevent recurrent infarct). CBC W/AUTO [id number] 07:49:00* Test Item Value Reference Range Interpretation [...] = MDIFF) NO - XR CHEST 1 [id number] 07:01:00 FAX: Gilma Villegas MD [phone] [place]: St: [facility] FAX: Ralph Chiang MD [phone] Name: RIGO SCOTT [facility] : 1940 Age/S: 79/F [address] [place] [address] Blvd Unit #: [id number] Loc: [place] [address] Phys: Ralph Chiang MD Acct: [id number] Dis Date: Status: REG ER PHONE #: [phone] Exam Date: 08/18/2019 0655 FAX #: [phone] Reason: Chest Pain EXAMS: CPT CODE: [id number] XR CHEST 1 V 22215 Chest, single view dated 08/18/2019. HISTORY: Chest [...] By: JorjeM Orig Print D/T: S: 08/18/2019 (4398) PAGE 1 Signed Report - XR SHOULDER 2 + V [id number] 06:57:00 FAX: Gilma Villegas MD [phone] [place]: St: REG FAX: Ralph Chiang MD [phone] Name: RIGO SCOTT [facility] : 1940 Age/S: 79/F [address] [place] [address] Unit #: [id number] Loc: [place] [address] Phys: Ralph Chiang MD Acct: [id number] Dis Date: Status: REG ER PHONE #: [phone] Exam Date: 08/18/2019 06 FAX #: [phone] Reason: pain EXAMS: CPT CODE: [id number] XR SHOULDER 2 + [place] [address] Left shoulder, 3 views dated 08/18/2019. HISTORY: [...] By: Dinesh Orig Print D/T: S: 08/18/2019 (0773) PAGE 1 Signed Report TROPONIN-I [id number] 06:47:00* Test Item Value Reference Range Interpretation Comments TROPONIN-I RAPID (test code = TROPIRAP) 0.00 ng/mL 0.00-0.08 N Performed by certified cuprous chloride operator at [facility] Negative: <= 0.08 Positive: >= 0.09An elevated troponin value alone is not sufficient todiagnose a myocardial infarction. Rather, the patient sclinical presentation (history, physical exam) and ECGshould be used in conjunction with troponin in thediagnostic evaluation of suspected myocardial infarction. Aserial sampling protocol is recommended to facilitate the identification of temporal changes in troponin levels characteristic of [place].
--- NOTE | 2020-04-06 11:05 | NUR ---
Pt unavailable at this time. Coconut Cooker will follow up as able. [facility] O: [phone]
[2020-04-06] MEDS: LEVOFLOXACIN 250MG/D5W 50ML 50 ML IV SCH (11:30)
--- NOTE | 2020-04-06 14:00 | NUR ---
C/O SOME UPPER LEFT CHEST/EPIGASTRIC BURNING RELATED TO THE FOOD SHE HAD FOR LUNCH. REQUESTED MORE TO EAT. SANDWICH PROVIDED, BURPING WHEN HEAD RAISED IN THE BED WITH SOME RELIEF
--- NOTE | 2020-04-06 20:07 | NUR ---
Received pt in bed awake alert and oriented. Bed in low position, personal items within reach. Daughter in law at bedside. No s/sx of acute distress noted. Med pt for pain per request. Will cont to mon
[2020-04-06] MEDS: ATORVASTATIN 20 MG TAB PO SCH (21:00)
[2020-04-06] MEDS: OXAZEPAM 15 MG CAP PO SCH (21:00)
[2020-04-06] MEDS ORDERED: ZOLPIDEM TARTRATE 5 MG TAB PO PRN (21:00)
[2020-04-06] MEDS ORDERED: ONDANSETRON HCL 4 MG ORAL DISINTEGRATING TAB PO PRN (21:30)
[2020-04-07] VITALS (9 sets, daily range): BP systolic 99–151; BP diastolic 47–75
[2020-04-07] MEDS: CEFOXITIN 1GM/ D5W 50ML 50 ML IV SCH ×3 (02:39→18:37)
[2020-04-07] MEDS: DEXTROSE 5%/0.45% SOD CHL 1,000 ML IV SCH ×2 (03:00→13:00)
[2020-04-07] MEDS: CLINDAMYCIN 300MG 50 ML IV SCH ×3 (04:00→20:30)
[2020-04-07 06:05] LABS: BASOPHILS # (AUTO) 0.1 (0.0-0.1); BASOPHILS % 0.4 % (0.0-1.0); EOSINOPHILS # (AUTO) 0.1 (0.0-0.4); EOSINOPHILS % 0.7 % (0.0-6.0); HEMATOCRIT 37.9 % (34.2-44.1); LYMPHOCYTES # (AUTO) 2.3 (1.0-3.2); LYMPHOCYTES % 12.2 % (18.0-39.1); MEAN CORPUSCULAR HEMOGLOBIN 29.8 pg (28-32); MEAN CORPUSCULAR HGB CONC 31.7 g/dL (31-35); MONOCYTES # (AUTO) 1.1 (0.2-0.8); MONOCYTES % 5.8 % (4.4-11.3); NEUTROPHILS # (AUTO) 14.9 (2.1-6.9); NEUTROPHILS % 79.5 % (38.7-80.0); PLATELET COUNT 179 x10e3/uL (140-360); RED BLOOD COUNT 4.03 x10e6/uL (3.6-5.1); RED CELL DISTRIBUTION WIDTH 15.2 % (11.7-14.4)
[2020-04-07 06:18] LABS: ANION GAP 12.4 mmol/L (8-16); CALCIUM 8.7 mg/dL (8.4-10.2); CREATININE, SERUM 1.29 mg/dL (0.57-1.11); POTASSIUM 4.4 mmol/L (3.5-5.1)
--- NOTE | 2020-04-07 06:23 | NUR ---
IM-progress note O/Nsee below ros: no f/c/s/N/V/D/WALLIS/cp/sob/skin rash/back pain/dizziness/confusion v/s; revd PE tired appearing anicteric ns1s2 mod bs soft nt nd Bernardo in place, clear urine no edema/tenderness legs skin dry n. affect a&ox3; arias labs/meds A/P; Cystocele- s/p repair Obesity- hba1c/lipids Leukocytosis- iv abx; BMI 36.9 IRAJ- BZD GERD- ppi HLD- cont statin MIGDALIA vs CKD- IVF Prop: scd; pepcid dispo: 5-22 f/u WBC: renal fn improving; Lorri Moralez MD, PhD.
[2020-04-07] MEDS: PANTOPRAZOLE SOD 40 MG TABEC PO SCH (10:00)
[2020-04-07] MEDS: SERTRALINE HCL 50 MG TAB PO SCH (10:00)
[2020-04-07] MEDS: LEVOFLOXACIN 250MG/D5W 50ML 50 ML IV SCH (12:00)
[2020-04-07] MEDS ORDERED: BISACODYL 10 MG SUPP PR SCH (14:00)
[2020-04-07] MEDS ORDERED: LEVOFLOXACIN250 MG PO (14:45)
[2020-04-07] MEDS ORDERED: ULTRAM50 MG PO (14:45)
--- NOTE | 2020-04-07 16:32 | NUR ---
PT HAD 2 BM'S, SUKHWINDER DC'D PER MD ORDER
--- NOTE | 2020-04-07 20:11 | NUR ---
Received pt in room sitting up at bedside. Denies any discomfort at this time. No s/sx of distress. Daughter in law at bedside. Personal items and call yee within reach. Pt up to attempt to void. Hat placed in commode to measure. Will do PVR per orders. Will cont to mon
--- NOTE | 2020-04-07 20:37 | NUR ---
Pt up to bathroom x 2 to attempt to urinate. Pt states a little output. PVR noted at >[address] Williamson via answering service spoke with Janell
[2020-04-07] MEDS: OXAZEPAM 15 MG CAP PO SCH (21:00)
[2020-04-07] MEDS: ATORVASTATIN 20 MG TAB PO SCH (21:00)
--- NOTE | 2020-04-07 22:03 | NUR ---
Marina cath 18fr placed per Dr. Williamson orders. Pt med for c/o pain to lower abd. Orders given to d/c pt home with marina and leg bag. Daughter in law at bedside.
--- NOTE | 2020-04-08 00:29 | NUR ---
Pt and daughter in law at bedside given d/c instructions and rx on chart. Verbalized understanding of changing marina drainage bags from primary bag to leg bag and to follow up with md in 2 weeks. PIV removed without diff. VSS, no signs of distress noted. Assisted pt via w/c to hospital entrance. Transportation provided via daughter in law.
== END 2020-04-07 23:23 | disposition home or self-care (01) | DRG 748 ==
LOC: OR 07:10 → PACU V 13:16 → MED/SURG 19:58
PROVIDERS: ADMIT Internal Medicine; ATTEND Internal Medicine
PROC: 0T788DZ Dilation of Bilateral Ureters with Intraluminal Device, Via Natural or Artificial Opening Endoscopic (ICD-10-PCS; 2020-04-05)
PROC: BT141ZZ Fluoroscopy of Kidneys, Ureters and Bladder using Low Osmolar Contrast (ICD-10-PCS; 2020-04-05)
PROC: 0JQC3ZZ Repair Pelvic Region Subcutaneous Tissue and Fascia, Percutaneous Approach (ICD-10-PCS; principal; 2020-04-05 09:30)
PROC: 0USG4ZZ Reposition Vagina, Percutaneous Endoscopic Approach (ICD-10-PCS; 2020-04-05 09:30)
DX: N81.10 Cystocele, unspecified (principal); N39.0 Urinary tract infection, site not specified; N17.9 Acute kidney failure, unspecified; N39.3 Stress incontinence (female) (male); I10 Essential (primary) hypertension; K21.9 Gastro-esophageal reflux disease without esophagitis; N81.89 Other female genital prolapse; R39.14 Feeling of incomplete bladder emptying; E66.9 Obesity, unspecified; R35.1 Nocturia; N32.81 Overactive bladder; N95.2 Postmenopausal atrophic vaginitis; F41.1 Generalized anxiety disorder; Z85.3 Personal history of malignant neoplasm of breast; F03.90 Unspecified dementia, unspecified severity, without behavioral disturbance, psychotic disturbance, mood disturbance, and anxiety; Z68.36 Body mass index [BMI] 36.0-36.9, adult; I12.9 Hypertensive chronic kidney disease with stage 1 through stage 4 chronic kidney disease, or unspecified chronic kidney disease; N18.9 Chronic kidney disease, unspecified
CPT/HCPCS: 36415; 51700; 71046; 74420; 80048; 80061; 83036; 85025; 87635; 93005; 96361; C1752; J1100; J1956; J2250; J2270; J2405; J2765; J3010